=== PATIENT | male | born 1940 | race Caucasian/White ===

== ENCOUNTER → 2018-09-03 15:45 | Outpatient (CLI) | payer MEDICARE, BC, SELFPAY ==
[2018-09-03 17:09] LABS: PSA,Total- Diagnostic 0.33 ng/mL (0.0-4.0)
== END ==
PROVIDERS: Family Provider Family Medicine; PCP Family Medicine; Referring Provider Urology; Visit Provider Urology
DX: C61 Malignant neoplasm of prostate (principal)
CPT/HCPCS: 36415; 84153

== ENCOUNTER 2020-07-12 16:41 | Inpatient (IN) | payer MEDICARE, BC, SELFPAY ==
[2020-07-12 16:51] VITALS: BP 128/85; PULSE 71; RESP 16; TEMP 36.4; O2SAT 93; BMI 26.6
[2020-07-12 18:03] VITALS: BMI 26.6
[2020-07-12 19:26] VITALS: BP 126/82; PULSE 75; RESP 16; TEMP 36.6; O2SAT 94
--- NOTE | 2020-07-12 21:25 | PCM.HP.STD ---
Problem List (1) Debility Status: Acute (2) Osteoarthritis of right knee Status: Chronic (3) Peroneal DVT (deep venous thrombosis) Status: Acute (4) Hypertension Status: Chronic (5) Hyperlipidemia Status: Chronic (6) Anxiety Status: Chronic (7) Depression Status: Chronic Qualifiers: (8) CAD (coronary artery disease) Status: Chronic Qualifiers: History of Present Illness Date of Admission: 07/12/20 Chief Complaint: Here for 3 hours daily rehabilitation, strengthening, prior to discharge home with . The patient is a 80 year old Male with past medical history of coronary artery disease, hypertension, hyperlipidemia, depression, hospitalized for right total knee arthroplasty 07/06/[address] Adams at [facility]. Postoperative course complicated by Peroneal DVT 07/09/20 treated with Xarelto for 3 months. Postoperative anemia did not require transfusion. Admit to 07/12/20 for greater than 3 hours daily rehabilitation, prior to discharge home with . 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, 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 Hyperlipemia E78.5 HTN (hypertension) I10 Allergies No Known Allergies Allergy (Verified 06/15/17 17:24) Home Medications: Ambulatory Orders Medication Instructions Recorded Atenolol 12.5 mg PO DAILY 06/15/17 Crestor 40 mg PO DAILY 06/15/17 Lisinopril 20 mg PO DAILY 06/15/17 Plavix 75 mg PO DAILY 06/15/17 Ranexa 500 mg PO DAILY 06/15/17 Super B Maxi Complex Caplet 1 PO DAILY 06/15/17 Vitamin B-12 1 PO DAILY 06/15/17 Acetaminophen [Tylenol] 1,000 mg PO Q6H PRN PRN 07/12/20 Amlodipine [Norvasc] 5 mg PO DAILY 07/12/20 Escitalopram Oxalate [Lexapro] 10 mg PO DAILY 07/12/20 Lorazepam [Ativan] 0.5 mg PO DAILY 07/12/20 Ondansetron HCl [Zofran] 4 mg PO Q8H PRN PRN 07/12/20 Oxycodone [Oxyir] 5 mg PO Q4H PRN PRN 07/12/20 Rivaroxaban [Xarelto] 15 mg PO BID 07/12/20 Rivaroxaban [Xarelto] 20 mg PO DAILY 07/12/20 Surgical History: herniorrhaphy, - - Aortic stent. Psychiatric History: Anxiety, Depression Lives: Spouse/ Significant Other Smoking Status: Never smoker Tobacco Use: Non-smoker Alcohol: Rare Drugs: None - *Family History Maternal History Items: No pertinent history Paternal History Items: No pertinent history Review of Systems Constitutional: Denies: Chills, Fever, Weight Change HEENT: Denies: Head Aches, Sinus Congestion, Sinus Drainage Cardiovascular: Denies: Chest Pain, Palpitations Respiratory: Denies: Cough, Shortness of breath at rest, Sputum production Gastrointestinal: Denies: Abdominal Pain, Nausea, Vomiting Genitourinary: Denies: Dysuria Musculoskeletal: Denies: Joint Pain, Joint Tenderness Skin: Denies: Rash, Wounds Neurological: Denies: Numbness, Tingling, Focal weakness Psychiatric: Denies: Anxiety, Depression, Homicidal Ideations, Suicidal Ideations Hematologic/ Lymphatic: Denies: Easy Bruising, Easy Bleeding VTE Information - Inpt Only VTE Present on Admission: Yes VTE Mechan Device Prophylaxis: Knee High ZULLY Hose VTE Pharm Prophylaxis ordered?: No Reason prophylaxis not ordered:: Treatment Not Indicated Patient Problems: Active and Suspected Problems (Last Updated 07/12/20 @ 17:49 by Makenzie Hernandez) Debility (Acute) Peroneal DVT (deep venous thrombosis) (Acute) - Physical Exam Vitals/I&O's: Vital Signs Temp Pulse Resp BP Pulse Ox 97.8 F 75 16 126/82 H 94 07/12/20 19:26 07/12/20 19:26 07/12/20 19:26 07/12/20 19:26 07/12/20 19:26 Oxygen Delivery Method Room Air Weight: 77.111 kg Body Mass Index (BMI) 26.6 Intake and Output for Last 24 Hours 07/10/20 07/11/20 07/12/20 23:59 23:59 23:59 Intake Total 250 / 250 Output Total 150 / 150 Balance 100 / 100 General: Alert, Oriented x3, Cooperative HEENT: Atraumatic, PERRLA, EOMI, Normocephalic Neck: Supple, No JVD, Negative Carotid Bruits Lungs: Clear to auscultation, Normal air movement Cardiovascular: Regular rate, No murmurs Abdomen: Bowel Sounds Present, Soft, Non Tender Extremities: No edema, Capillary Refill Less than 3 Seconds Skin: No rashes, No breakdown, Incision - Right knee incision clean, dry, intact. Musculoskeletal: No Tenderness to Palpation of Joints or Extremities Neurological: Cranial nerves II-XII grossly intact Psych/Mental Status: Normal Affect, Appropriate Current Medications Acetaminophen (Tylenol) 1,000 mg PO Q6H PRN PRN PRN Reason: Pain or Fever Amlodipine Besylate (Norvasc) 5 mg PO DAILY REPLACED BY [facility] Atenolol (Tenormin (Beta Becki)) 12.5 mg PO DAILY REPLACED BY [facility] Atorvastatin Calcium (Lipitor) 80 mg PO QHS REPLACED BY [facility] Bisacodyl (Dulcolax) 10 mg RECTAL .PRN X 1 PRN PRN Reason: Constipation Clopidogrel Bisulfate (Plavix) 75 mg PO DAILY REPLACED BY [facility] Escitalopram Oxalate (Lexapro) 10 mg PO DAILY REPLACED BY [facility] Lisinopril (Zestril) 20 mg PO DAILY REPLACED BY [facility] Lorazepam (Ativan) 0.5 mg PO DAILY@0800 REPLACED BY [facility] Magnesium Hydroxide (Milk Of Magnesia) 30 ml PO .PRN X 1 PRN PRN Reason: Constipation Ondansetron HCl (Zofran Odt) 4 mg PO Q8H PRN PRN PRN Reason: NAUSEA/VOMITING Oxycodone HCl (Oxyir) 5 mg PO Q4H PRN PRN PRN Reason: Pain Score 1-10/10 Ranolazine (Ranexa) 500 mg PO DAILY REPLACED BY [facility] Rivaroxaban (Xarelto) 20 mg PO DAILY@1745 REPLACED BY [facility] Rivaroxaban (Xarelto) 15 mg PO BID@0745,1745 REPLACED BY [facility] Stop: 08/02/20 17:46 Senna/Docusate Sodium (Senokot-S, Roxi-Colace) 2 tablet PO BID REPLACED BY [facility] Assessment/Plan All Active Problems (Last Updated 07/12/20 @ 17:49 by Makenzie Hernandez) Debility (Acute) Peroneal DVT (deep venous thrombosis) (Acute) 80 year old male with below past medical history underwent right total knee arthroplasty 07/06/[address] Adams, postoperative course complicated by peroneal DVT, admitted to for greater than 3 hours daily rehabilitation, strengthening, prior to discharge home with . Debility - PT/OT. Pain - Tylenol 1000MG Q6H PRN pain (1-3), Oxycodone 5MG Q4H PRN pain (4-10). Bowel - Senna/colace 2 tablets BID, Dulcolax 10MG [place] daily PRN, MOM 30ML PO PRN. DVT prophylaxis - Not necessary, already on Xarelto. Hypertension - Atenolol 12.5MG daily, Lisinopril 20MG daily, Amlodipine 5MG daily. Hyperlipidemia - Atorvastatin 80MG QHS. Coronary Artery Disease - Atenolol 12.5MG daily, Lisinopril 20MG daily, Ranexa 500MG daily, Plavix 75MG daily. Depression - Lexapro 10MG daily. Anxiety - Ativan 0.5MG daily. Nausea - Zofran 4MG Q8H PRN. Peroneal DVT - Xarelto 15MG BID thru 08/02/2020, Xarelto 20Mg daily thru 10/09/2020.
[2020-07-12] MEDS: Atorvastatin Calcium 80 MG Tablet PO (22:07)
[2020-07-12] MEDS: Senna/Docusate Sodium 1 Tablet 2 TABLET PO (22:07)
[2020-07-13] MEDS: Rivaroxaban 15 MG Tablet PO ×2 (06:43→17:42)
[2020-07-13 07:09] LABS: ALB/GLOB Ratio 0.8 RATIO (0.9-2.4); AST(SGOT) 55 U/L (15-37); Absolute Lymphocyte Count 0.99 X10^3/uL (0.83-4.51); Alanine Aminotransfer ALT/SGPT 38 U/L (16-61); Alkaline Phosphatase 74 U/L (45-117); Anion Gap 6 (5-15); BUN 22 mg/dL (7-18); BUN/Creat Ratio 18.8 RATIO (10-20); Basophil# 0.05 X10^3/uL; Basophil% 0.8 % (0-1); Calcium,Total 8.7 mg/dL (8.5-10.1); Chloride 109 mmol/L (98-107); Creatinine, Serum 1.17 mg/dL (0.70-1.30); EST Glomerular Filtration Rate 64 mL/min (>60); Eosinophil# 0.15 X10^3/uL; Eosinophils% 2.4 % (0-5); Est Glom Filt Rate - Afr Amer 77 mL/min (>60); Estimated Creatinine Clearance 47.08 ml/min; Globulin 3.6 g/dL (2.2-4.2); Glucose 118 mg/dL (74-106); Hematocrit 34.3 % (40-54); Hemoglobin 11.3 g/dL (13.0-16.5); Lymphocyte # 0.99 X10^3/ul (4.0); Lymphocyte % 15.6 % (19-41); Magnesium 2.4 mg/dL (1.6-2.6); Mean Corp Hgb Conc 32.9 g/dL (32-36); Mean Corpuscular Hgb 31.7 pg (27.0-32.0); Mean Corpuscular Volume 96.3 fL (80-94); Mean Platelet Vol. 10.5 fl (6.2-12.0); Monocyte# 0.95 X10^3/uL; NRBC Flagged by Analyzer 0.3 % (0-5); Neutrophil # 4.02 X10^3/uL (2.7-7.7); Neutrophil % 63.2 % (47-70); Phosphorus 2.6 mg/dL (2.5-4.9); Platelet Count 171 K/mm3 (150-450); Potassium 3.6 mmol/L (3.5-5.1); Protein, Total 6.6 g/dL (6.4-8.2); RBC Distribution Width SD 48.8 fl (35.1-43.9); Red Blood Count 3.56 M/mm3 (4.6-6.2); Sodium Level 141 mmol/L (136-145); White Blood Count 6.4 K/mm3 (4.4-11.0)
[2020-07-13] MEDS: LORazepam 0.5 MG Tablet PO (07:51)
[2020-07-13] MEDS: Atenolol 25 MG Tablet 12.5 MG PO (07:52)
[2020-07-13] MEDS: Clopidogrel Bisulfate 75 MG Tablet PO (07:52)
[2020-07-13] MEDS: Ranolazine 500 MG Tablet PO (07:52)
[2020-07-13] MEDS: Escitalopram Oxalate 10 MG Tablet PO (07:52)
[2020-07-13] MEDS: Lisinopril 20 MG Tablet PO (07:52)
[2020-07-13] MEDS: amLODIPine 5 MG Tablet PO (07:52)
[2020-07-13] MEDS: oxyCODONE 5 MG Tablet PO ×2 (07:53→17:48)
[2020-07-13 08:05] VITALS: BP 144/80; PULSE 80; RESP 16; TEMP 36.8; O2SAT 99
--- NOTE | 2020-07-13 09:16 | NURSING ---
Call placed to Dr. Adams office and message left regarding wether or not pt is to have CPM/ROM machine or not per .
[2020-07-13] MEDS: Acetaminophen 500 MG Tablet 1000 MG PO (11:08)
[2020-07-13] MEDS: NYSTATIN 500,000 UNIT/5 ML UDC 500000 UNIT PO ×4 (11:09→20:48)
[2020-07-13 17:00] VITALS: O2SAT 97
[2020-07-13 19:15] VITALS: BP 124/86; PULSE 74; RESP 16; TEMP 36.6; O2SAT 96
[2020-07-13] MEDS: Atorvastatin Calcium 80 MG Tablet PO (20:49)
[2020-07-13] MEDS: Senna/Docusate Sodium 1 Tablet 2 TABLET PO (20:49)
--- NOTE | 2020-07-13 21:00 | PCM.RU.PYE ---
Admission Information Primary Diagnosis:: Right total knee arthroplasty, Peroneal DVT. Status Changes from Prescreening?: No changes Identified Actual Problem List:: DVT, Pain, ALteration in Cmfrt, Mobility Impaired Potential Problem List:: DVT, Bleeding, Infection, UTI, Aspiration, Falls, Skin Integrity, Depression Risk of Complications DVT: LMWH, ZULLY Hose, Sequential Compression Device Bleeding: Monitor Lab Values, Nursing to Teach Precautions for anti-coagulation therapy., Wound, if applicable, to be assessed every shift., Stroke patients assessed for lethargy or change in status. Infection: Clinical Staff to Monitor for S/S of infection:, S/S of infection include fever, redness, warmth, etc. Urinary Tract Infection: Monitor for frequency, burning, discomfort, or incontinence., Nursing will obtain urine sample for urinalysis and C&S when ordered. Aspiration: Clinical staff will monitor for coughing, drooling, congestion., Speech will evaluate swallowing and dsyphasia., Nursing will monitor patient swallowing during meals. Falls: Patient will be evaluated for Fall Precautions, Patient will be placed on Fall Precautions as indicated per protocol. Skin Breakdown: Nursing will assess skin daily using assessment tool., Nursing will place on Skin Breakdown Precautions as indicated. Pain: Clinical staff will assess patient's pain level per protocol., Medications will be given, if needed, and the pain level reassessed., Other methods: Massage, distraction, decrease stimulus, etc. used PRN. Plan of Care Patient requires physician specializing in physical medicine and rehab oversight to provide close medical supervision of rehab issues including: Pain Management, Sleep Problems, Bowel and Bladder, Medical and co-morbidity Management, DVT prophylaxis, Rehabilitation Leadership, Coordination of treatment team Patient needs Physical Therapy: For a minimum of 1 hour, At least 5 out of 7 days Patient needs Physical Therapy to improve:: Mobility, Mobility, Mobility, Strengthening, Transfers, Stretching, ROM, Endurance, Stairs, Gait, Balance Patient needs Occupational Therapy: For a minimum of 1 hour, At least 5 out of 7 days Patient needs Occupational Therapy to improve ADL's incl.: Eating, Grooming, Bathing, Dressing, Toileting, Toilet transfers, Community Reintegration, Higher functioning activities, Household tasks, Adaptive Equipment, Splinting, Other activities as determined Patient requires speech therapy: For a minimum of 1 hour, At least 5 out of 7 days Patient requires speech therapy for: Swallowing, Cognition, Language Skills, Compensatory Strategies Patient requires 24/ Rehabilitation Nursing for: Pain Issues, Identifying and preventing risk factors, Monitoring and reporting current medical conditions, Assisting with ambulation, transfer, and all ADL's, Teaching patients about disease process and medications, Family teaching, Providing safe environment, Bowel and Bladder Issues, Skin integrity, Medication Management Patient needs Director Public Service/ Case Management for: Discharge Planning, Arranging Home Equipment or Services, Family Interventions Patient needs Dietary and Nutrition Services for: Adequate Nutrition, Nutritional Supplements, Nutritional Education Goals Patient will remain: free from falls, or injury at time of discharge. Patient will perform bed mobility at: MOD I level of assist. Patient will complete transfers from bed to chair at: MOD I level of assist. Patient will ambulate: 100 feet, with MOD I assist, with LRD Patient will complete upper body dressing at: MOD I level of assist. Patient will complete lower body dressing at: MOD I level of assist. Patient will complete toileting at: MOD I level of assist. Patient will perform bathing at: - - Supervision. Patient will complete grooming at: MOD I level of assist. Patient will complete home management skills at: MOD I level of assist. Patient will achieve: at MOD I assist, - - 1 step. Patient will have pain level of: of 3 or less Patient's skin will: remain intact, free from infection. Patient will receive: adequate nutrition. Discharge Planning Pt Prognosis for Sig. Practical Improv. w/in Reasonable Time: Good Anticipated D/C Destination: Home with Home Health Was Preadmission Assessment Accurate?: Yes
[2020-07-13 21:09] VITALS: PULSE 74; RESP 16; O2SAT 96
--- NOTE | 2020-07-14 02:59 | NURSING ---
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
[2020-07-14] MEDS: oxyCODONE 5 MG Tablet PO ×2 (05:40→09:56)
[2020-07-14 06:30] VITALS: O2SAT 96
[2020-07-14] MEDS: LORazepam 0.5 MG Tablet PO (07:49)
[2020-07-14] MEDS: amLODIPine 5 MG Tablet PO (07:49)
[2020-07-14] MEDS: Atenolol 25 MG Tablet 12.5 MG PO (07:49)
[2020-07-14] MEDS: Ranolazine 500 MG Tablet PO (07:49)
[2020-07-14] MEDS: Lisinopril 20 MG Tablet PO (07:50)
[2020-07-14] MEDS: Rivaroxaban 15 MG Tablet PO ×2 (07:50→16:57)
[2020-07-14] MEDS: Clopidogrel Bisulfate 75 MG Tablet PO (07:50)
[2020-07-14] MEDS: Escitalopram Oxalate 10 MG Tablet PO (07:50)
[2020-07-14] MEDS: NYSTATIN 500,000 UNIT/5 ML UDC 500000 UNIT PO ×4 (07:56→20:00)
[2020-07-14 08:19] VITALS: BP 123/63; PULSE 71; RESP 16; TEMP 37; O2SAT 95
--- NOTE | 2020-07-14 08:23 | PCM.PROGNOTE ---
Patient Problems: Active and Suspected Problems (Last Updated 07/12/20 @ 17:49 by Makenzie Hernandez) Debility (Acute) Peroneal DVT (deep venous thrombosis) (Acute) Subjective: Patient seen today, lying in bed. He has no complaints. We discussed his DVT, let him know will resolve with treatment. - Physical Exam Vitals/I&O's: Vital Signs Temp Pulse Resp BP Pulse Ox 98.6 F 71 16 123/63 H 95 07/14/20 08:19 07/14/20 08:19 07/14/20 08:19 07/14/20 08:19 07/14/20 08:19 Oxygen Delivery Method Room Air Weight: 76.5 kg Body Mass Index (BMI) 26.6 Intake and Output for Last 24 Hours 07/12/20 07/13/20 07/14/20 23:59 23:59 23:59 Intake Total 370 / 370 260 / 260 360 / 360 Output Total 300 / 300 600 / 600 150 / 150 Balance 70 / 70 -340 / -340 210 / 210 General: Alert, Oriented x3, Cooperative HEENT: Atraumatic, PERRLA, EOMI, Normocephalic Neck: Supple, No JVD, Negative Carotid Bruits Lungs: Clear to auscultation, Normal air movement Cardiovascular: Regular rate, No murmurs Abdomen: Bowel Sounds Present, Soft, Non Tender Extremities: No edema, Capillary Refill Less than 3 Seconds Skin: No rashes, No breakdown Musculoskeletal: No Tenderness to Palpation of Joints or Extremities Neurological: Cranial nerves II-XII grossly intact Psych/Mental Status: Normal Affect, Appropriate Current Medications Acetaminophen (Tylenol) 1,000 mg PO Q6H PRN PRN PRN Reason: Pain Score 1-3/10 Last Admin: 07/13/20 11:08 Dose: 1,000 mg Documented by: Amlodipine Besylate (Norvasc) 5 mg PO DAILY [facility] Last Admin: 07/14/20 07:49 Dose: 5 mg Documented by: Atenolol (Tenormin (Beta Becki)) 12.5 mg PO DAILY [facility] Last Admin: 07/14/20 07:49 Dose: 12.5 mg Documented by: Atorvastatin Calcium (Lipitor) 80 mg PO QHS [facility] Last Admin: 07/13/20 20:49 Dose: 80 mg Documented by: Bisacodyl (Dulcolax) 10 mg RECTAL .PRN X 1 PRN PRN Reason: Constipation Clopidogrel Bisulfate (Plavix) 75 mg PO DAILY [facility] Last Admin: 07/14/20 07:50 Dose: 75 mg Documented by: Escitalopram Oxalate (Lexapro) 10 mg PO DAILY [facility] Last Admin: 07/14/20 07:50 Dose: 10 mg Documented by: Lisinopril (Zestril) 20 mg PO DAILY [facility] Last Admin: 07/14/20 07:50 Dose: 20 mg Documented by: Lorazepam (Ativan) 0.5 mg PO DAILY@0800 [facility] Last Admin: 07/14/20 07:49 Dose: 0.5 mg Documented by: Magnesium Hydroxide (Milk Of Magnesia) 30 ml PO .PRN X 1 PRN PRN Reason: Constipation Nystatin (Nystatin) 500,000 unit PO 4X/DAY [facility] Stop: 07/22/20 22:00 Last Admin: 07/14/20 07:56 Dose: 500,000 unit Documented by: Ondansetron HCl (Zofran Odt) 4 mg PO Q8H PRN PRN PRN Reason: NAUSEA/VOMITING Oxycodone HCl (Oxyir) 5 mg PO Q4H PRN PRN PRN Reason: Pain Score 4-10/10 Last Admin: 07/14/20 05:40 Dose: 5 mg Documented by: Ranolazine (Ranexa) 500 mg PO DAILY [facility] Last Admin: 07/14/20 07:49 Dose: 500 mg Documented by: Rivaroxaban (Xarelto) 20 mg PO DAILY@1745 [facility] Rivaroxaban (Xarelto) 15 mg PO BID@0745,1745 [facility] Stop: 08/02/20 17:46 Last Admin: 07/14/20 07:50 Dose: 15 mg Documented by: Senna/Docusate Sodium (Senokot-S, Roxi-Colace) 2 tablet PO BID [facility] Last Admin: 07/14/20 07:50 Dose: Not Given Documented by: Capacity - Capacity Assessment Tool Can the patient make a choice & communicate that choice?: Yes Can the patient understand benefits, risks and alternatives?: Yes Can the patient make a logical, rational choice?: Yes Is the choice the patient makes consistent w/ their values?: Yes Is there an impending, emergent risk to the patient?: No Does the patient have an Advance Directive?: No Is there a Surrogate Available?: Yes i.e. HCPOA: Yes i.e. close relative (spouse, child, parent, sibling)?: Yes Medical Necessity - Tobacco Use Smoking Status: Never smoker Tobacco Use: Non-smoker Assessment/Plan All Active Problems (Last Updated 07/12/20 @ 17:49 by Makenzie Hernandez) Debility (Acute) Peroneal DVT (deep venous thrombosis) (Acute) 80 year old male with below past medical history underwent right total knee arthroplasty 07/06/[address] Adams, postoperative course complicated by peroneal DVT, admitted to for greater than 3 hours daily rehabilitation, strengthening, prior to discharge home with . Debility - PT/OT. Pain - Tylenol 1000MG Q6H PRN pain (1-3), Oxycodone 5MG Q4H PRN pain (4-10). Bowel - Senna/colace 2 tablets BID, Dulcolax 10MG [place] daily PRN, MOM 30ML PO PRN. DVT prophylaxis - Not necessary, already on Xarelto. Hypertension - Atenolol 12.5MG daily, Lisinopril 20MG daily, Amlodipine 5MG daily. Hyperlipidemia - Atorvastatin 80MG QHS. Coronary Artery Disease - Atenolol 12.5MG daily, Lisinopril 20MG daily, Ranexa 500MG daily, Plavix 75MG daily. Depression - Lexapro 10MG daily. Anxiety - Ativan 0.5MG daily. Nausea - Zofran 4MG Q8H PRN. Peroneal DVT - Xarelto 15MG BID thru 08/02/2020, Xarelto 20Mg daily thru 10/09/2020.
--- NOTE | 2020-07-14 15:43 | CHAPLAIN ---
Type of Pastoral Visit _x__ Initial Visit ___ Follow-up Visit ___ On-call Visit ___ General Patient Visit ___ Spiritual Assessment ___ Family Conference ___ Bereavement ___ Rapid Response ___ Code Blue ___ Other (describe below) Pastoral Care Referral From _x__ Patient ___ Family ___ Nurse ___ Physician ___ Pallet Rectifier ___ Progress Clerk ___ Other (describe below) Sacrament/Intervention _x__ Active listening ___ Anointing ___ Scientology ___ Bereavement ___ Communion ___ Yenni exploration ___ _x__ Life review _x__ Prayer ___ Reconciliation ___ Sacrament of Sick _x__ Supportive presence ___ Wedding ___ Other (describe below) Pastoral Comments patient describes day as being a hard one; when asked how he is coping the pt responded well it has only been a week so I don't know, maybe just taking it as it comes; after some life review pt recognizes that he has many positive things in his life and his focus should be on those
[2020-07-14] MEDS: Senna/Docusate Sodium 1 Tablet 2 TABLET PO (20:00)
[2020-07-14] MEDS: Atorvastatin Calcium 80 MG Tablet PO (20:00)
[2020-07-14 20:05] VITALS: BP 134/75; PULSE 68; RESP 16; TEMP 37; O2SAT 94
[2020-07-15] MEDS: amLODIPine 5 MG Tablet PO (07:46)
[2020-07-15] MEDS: Rivaroxaban 15 MG Tablet PO ×2 (07:46→16:44)
[2020-07-15] MEDS: oxyCODONE 5 MG Tablet PO ×3 (07:46→16:49)
[2020-07-15] MEDS: Escitalopram Oxalate 10 MG Tablet PO (07:46)
[2020-07-15] MEDS: Ranolazine 500 MG Tablet PO (07:47)
[2020-07-15] MEDS: Clopidogrel Bisulfate 75 MG Tablet PO (07:47)
[2020-07-15] MEDS: Atenolol 25 MG Tablet 12.5 MG PO (07:47)
[2020-07-15] MEDS: Lisinopril 20 MG Tablet PO (07:48)
[2020-07-15] MEDS: LORazepam 0.5 MG Tablet PO (07:50)
[2020-07-15 07:55] VITALS: BP 139/83; PULSE 73; RESP 16; TEMP 36.6; O2SAT 94
--- NOTE | 2020-07-15 09:15 | CASEMGMT ---
Social Work IDT met with patient and for Team meeting. Discussed patient's progress in therapy. Pt is SBA to CGA or bed mobility, CGA to [facility] for transfers, ambulating 80 ft with FWW at [facility], but has small shuffled steps. Pt fatigues throughout the day. [facility] set up seated for UE dressing and grooming, [place] for LE dressing. Pt was independent prior. Pt gets paco removed 07/21. Discussed signs of Parkinson's - ordered Sinamet to start. Pt has flat affect. reports to all signs started about a few months to a year ago. Inquired about psych hx. stated he has seen a psychologist prior and had a psych hospitalization about 2 years ago. She recommended increasing his antidepressant - pt has increased dose ordered already. Pt is not one to express feelings. She reports to him being bubbly and outgoing. Will monitor for changes with order of medication. SW to continue to follow and assist. Explained Medicare coverage with approved days 15, 07/27. Nursing and therapy reported to pt needing increased time to process, trouble initiating tasks, and trouble with automatic tasks., Ordered entered for ST. Will ReTeam next week. Will continue to follow. Emma Bernal, [employer] SOFTWARE ARCHITECT
[2020-07-15] MEDS: Carbidopa/Levodopa 25/100 Tablet PO ×2 (11:18→16:44)
[2020-07-15] MEDS: NYSTATIN 500,000 UNIT/5 ML UDC 500000 UNIT PO ×3 (14:13→19:57)
[2020-07-15] MEDS: Acetaminophen 500 MG Tablet 1000 MG PO (18:51)
[2020-07-15 19:01] VITALS: BP 143/71; PULSE 69; RESP 16; TEMP 36.8; O2SAT 95
[2020-07-15] MEDS: Atorvastatin Calcium 80 MG Tablet PO (19:56)
[2020-07-15] MEDS: Senna/Docusate Sodium 1 Tablet 2 TABLET PO (19:56)
--- NOTE | 2020-07-15 20:55 | PN_ITS ---
Patient Problems: Active and Suspected Problems (Last Updated 07/12/20 @ 17:49 by Makenzie Hernandez) Debility (Acute) Peroneal DVT (deep venous thrombosis) (Acute) Subjective: Patient seen on Team Rounds. present. We discussed some of his symptoms maybe related to Parkinsonism. He agreed to therapeutic, diagnostic trial of carbidopa Levodopa. - Physical Exam Vitals/I&O's: Vital Signs Temp Pulse Resp BP Pulse Ox 98.3 F 69 16 143/71 H 95 07/15/20 19:01 07/15/20 19:01 07/15/20 19:01 07/15/20 19:07/15/20 19:01 Oxygen Delivery Method Room Air Weight: 76.5 kg Body Mass Index (BMI) 26.6 Intake and Output for Last 24 Hours 07/13/20 07/14/20 07/15/20 23:59 23:59 23:59 Intake Total 260 / 260 1440 / 1440 1100 / 1100 Output Total 600 / 600 675 / 675 300 / 300 Balance -340 / -340 765 / 765 800 / 800 General: Alert, Oriented x3, Cooperative HEENT: Atraumatic, PERRLA, EOMI, Normocephalic Neck: Supple, No JVD, Negative Carotid Bruits Lungs: Clear to auscultation, Normal air movement Cardiovascular: Regular rate, No murmurs Abdomen: Bowel Sounds Present, Soft, Non Tender Extremities: No edema, Capillary Refill Less than 3 Seconds Skin: No rashes, No breakdown Musculoskeletal: No Tenderness to Palpation of Joints or Extremities Neurological: Cranial nerves II-XII grossly intact, - - Masked Facies, shuffling gait. Psych/Mental Status: Normal Affect, Appropriate Current Medications Acetaminophen (Tylenol) 1,000 mg PO Q6H PRN PRN PRN Reason: Pain Score 1-3/10 Last Admin: 07/15/20 18:51 Dose: 1,000 mg Documented by: Amlodipine Besylate (Norvasc) 5 mg PO DAILY [facility] Last Admin: 07/15/20 07:46 Dose: 5 mg Documented by: Atenolol (Tenormin (Beta Becki)) 12.5 mg PO DAILY [facility] Last Admin: 07/15/20 07:47 Dose: 12.5 mg Documented by: Atorvastatin Calcium (Lipitor) 80 mg PO QHS [facility] Last Admin: 07/15/20 19:56 Dose: 80 mg Documented by: Bisacodyl (Dulcolax) 10 mg RECTAL .PRN X 1 PRN PRN Reason: Constipation Carbidopa/Levodopa (Sinemet) 1 tablet PO TIDAC [facility] Last Admin: 07/15/20 16:44 Dose: 1 tablet Documented by: Clopidogrel Bisulfate (Plavix) 75 mg PO DAILY [facility] Last Admin: 07/15/20 07:47 Dose: 75 mg Documented by: Escitalopram Oxalate (Lexapro) 10 mg PO DAILY [facility] Last Admin: 07/15/20 07:46 Dose: 10 mg Documented by: Lisinopril (Zestril) 20 mg PO DAILY [facility] Last Admin: 07/15/20 07:48 Dose: 20 mg Documented by: Lorazepam (Ativan) 0.5 mg PO DAILY@0800 [facility] Last Admin: 07/15/20 07:50 Dose: 0.5 mg Documented by: Magnesium Hydroxide (Milk Of Magnesia) 30 ml PO .PRN X 1 PRN PRN Reason: Constipation Nystatin (Nystatin) 500,000 unit PO 4X/DAY [facility] Stop: 07/22/20 22:00 Last Admin: 07/15/20 19:57 Dose: 500,000 unit Documented by: Ondansetron HCl (Zofran Odt) 4 mg PO Q8H PRN PRN PRN Reason: NAUSEA/VOMITING Oxycodone HCl (Oxyir) 5 mg PO Q4H PRN PRN PRN Reason: Pain Score 4-10/10 Last Admin: 07/15/20 16:49 Dose: 5 mg Documented by: Oxycodone HCl (Oxyir) 5 mg PO DAILY@0600 [facility] Ranolazine (Ranexa) 500 mg PO DAILY [facility] Last Admin: 07/15/20 07:47 Dose: 500 mg Documented by: Rivaroxaban (Xarelto) 20 mg PO DAILY@1745 [facility] Rivaroxaban (Xarelto) 15 mg PO BID@0745,1745 [facility] Stop: 08/02/20 17:46 Last Admin: 07/15/20 16:44 Dose: 15 mg Documented by: Senna/Docusate Sodium (Senokot-S, Roxi-Colace) 2 tablet PO BID [facility] Last Admin: 07/15/20 19:56 Dose: 2 tablet Documented by: Capacity - Capacity Assessment Tool Can the patient make a choice & communicate that choice?: Yes Can the patient understand benefits, risks and alternatives?: Yes Can the patient make a logical, rational choice?: Yes Is the choice the patient makes consistent w/ their values?: Yes Is there an impending, emergent risk to the patient?: No Does the patient have an Advance Directive?: No Is there a Surrogate Available?: Yes i.e. HCPOA: Yes i.e. close relative (spouse, child, parent, sibling)?: Yes Medical Necessity - Tobacco Use Smoking Status: Never smoker Tobacco Use: Non-smoker Assessment/Plan All Active Problems (Last Updated 07/12/20 @ 17:49 by Makenzie Hernandez) Debility (Acute) Peroneal DVT (deep venous thrombosis) (Acute) 80 year old male with below past medical history underwent right total knee arth roplasty 07/06/[address] Adams, postoperative course complicated by peroneal DVT, admitted to for greater than 3 hours daily rehabilitation, strengthening, prior to discharge home with . * Debility - PT/OT. * Pain - Tylenol 1000MG Q6H PRN pain (1-3), Oxycodone 5MG Q4H PRN pain (4-10). * Bowel - Senna/colace 2 tablets BID, Dulcolax 10MG [place] daily PRN, MOM 30ML PO PRN. * DVT prophylaxis - Not necessary, already on Xarelto. * Hypertension - Atenolol 12.5MG daily, Lisinopril 20MG daily, Amlodipine 5MG daily. * Hyperlipidemia - Atorvastatin 80MG QHS. * Coronary Artery Disease - Atenolol 12.5MG daily, Lisinopril 20MG daily, Ranexa 500MG daily, Plavix 75MG daily. * Depression - Lexapro 10MG daily. * Anxiety - Ativan 0.5MG daily. * Nausea - Zofran 4MG Q8H PRN. * Peroneal DVT - Xarelto 15MG BID thru 08/02/2020, Xarelto 20Mg daily thru 10/09/2020. * Parkinsonism - Rx Sinemet 25/100MG TID trial, monitor closely for improvement in movement.
[2020-07-16] MEDS: Carbidopa/Levodopa 25/100 Tablet PO ×3 (06:03→16:11)
[2020-07-16] MEDS: oxyCODONE 5 MG Tablet PO ×3 (06:03→20:35)
[2020-07-16 07:34] VITALS: BP 126/79; PULSE 66; RESP 18; TEMP 36.6; O2SAT 93
[2020-07-16] MEDS: Rivaroxaban 15 MG Tablet PO ×2 (08:20→17:24)
[2020-07-16] MEDS: Escitalopram Oxalate 10 MG Tablet PO (08:21)
[2020-07-16] MEDS: amLODIPine 5 MG Tablet PO (08:21)
[2020-07-16] MEDS: NYSTATIN 500,000 UNIT/5 ML UDC 500000 UNIT PO ×4 (08:21→20:32)
[2020-07-16] MEDS: Clopidogrel Bisulfate 75 MG Tablet PO (08:22)
[2020-07-16] MEDS: Ranolazine 500 MG Tablet PO (08:22)
[2020-07-16] MEDS: Senna/Docusate Sodium 1 Tablet 2 TABLET PO ×2 (08:22→20:33)
[2020-07-16] MEDS: Atenolol 25 MG Tablet 12.5 MG PO (08:22)
[2020-07-16] MEDS: Lisinopril 20 MG Tablet PO (08:23)
[2020-07-16] MEDS: LORazepam 0.5 MG Tablet PO (08:24)
[2020-07-16] MEDS: Atorvastatin Calcium 80 MG Tablet PO (20:32)
--- NOTE | 2020-07-16 20:40 | NURSING ---
pt. refused all HS care. Pt. states he wants to be left alone
[2020-07-16 21:25] VITALS: BP 123/74; PULSE 67; RESP 16; TEMP 36.7; O2SAT 95
[2020-07-17] MEDS: oxyCODONE 5 MG Tablet PO ×4 (05:39→21:56)
[2020-07-17] MEDS: Carbidopa/Levodopa 25/100 Tablet PO ×3 (05:39→16:06)
[2020-07-17] MEDS: Clopidogrel Bisulfate 75 MG Tablet PO (07:48)
[2020-07-17] MEDS: Rivaroxaban 15 MG Tablet PO ×2 (07:48→17:54)
[2020-07-17] MEDS: Ranolazine 500 MG Tablet PO (07:48)
[2020-07-17] MEDS: LORazepam 0.5 MG Tablet PO (07:48)
[2020-07-17] MEDS: amLODIPine 5 MG Tablet PO (07:48)
[2020-07-17] MEDS: Escitalopram Oxalate 10 MG Tablet PO (07:49)
[2020-07-17] MEDS: Atenolol 25 MG Tablet 12.5 MG PO (07:50)
[2020-07-17] MEDS: Lisinopril 20 MG Tablet PO (07:50)
[2020-07-17 08:08] VITALS: BP 133/74; PULSE 75; RESP 18; TEMP 36.9; O2SAT 94
[2020-07-17] MEDS: NYSTATIN 500,000 UNIT/5 ML UDC 500000 UNIT PO ×4 (10:19→21:57)
[2020-07-17 19:12] VITALS: BP 124/67; PULSE 60; RESP 18; TEMP 36.9; O2SAT 96
[2020-07-17] MEDS: Senna/Docusate Sodium 1 Tablet 2 TABLET PO (21:57)
[2020-07-17] MEDS: Atorvastatin Calcium 80 MG Tablet PO (21:57)
[2020-07-17 22:00] VITALS: PULSE 80; RESP 16
[2020-07-18] MEDS: Carbidopa/Levodopa 25/100 Tablet PO ×3 (06:13→17:27)
[2020-07-18] MEDS: oxyCODONE 5 MG Tablet PO ×5 (06:13→21:48)
[2020-07-18 07:32] VITALS: BP 128/75; PULSE 69; RESP 16; TEMP 36.5; O2SAT 95
[2020-07-18] MEDS: amLODIPine 5 MG Tablet PO (07:38)
[2020-07-18] MEDS: Rivaroxaban 15 MG Tablet PO ×2 (07:38→17:27)
[2020-07-18] MEDS: LORazepam 0.5 MG Tablet PO (07:38)
[2020-07-18] MEDS: Ranolazine 500 MG Tablet PO (07:38)
[2020-07-18] MEDS: Escitalopram Oxalate 10 MG Tablet PO (07:38)
[2020-07-18] MEDS: Atenolol 25 MG Tablet 12.5 MG PO (07:39)
[2020-07-18] MEDS: Clopidogrel Bisulfate 75 MG Tablet PO (07:39)
[2020-07-18] MEDS: Lisinopril 20 MG Tablet PO (07:39)
[2020-07-18] MEDS: NYSTATIN 500,000 UNIT/5 ML UDC 500000 UNIT PO ×4 (10:11→22:11)
[2020-07-18 20:19] VITALS: BP 132/74; PULSE 62; RESP 16; TEMP 36.6; O2SAT 96
[2020-07-18] MEDS: Atorvastatin Calcium 80 MG Tablet PO (21:49)
[2020-07-18] MEDS: Senna/Docusate Sodium 1 Tablet 2 TABLET PO (21:49)
[2020-07-18 22:00] VITALS: PULSE 68; RESP 16
[2020-07-19] MEDS: oxyCODONE 5 MG Tablet PO ×4 (06:25→21:17)
[2020-07-19] MEDS: Carbidopa/Levodopa 25/100 Tablet PO ×3 (06:26→16:52)
[2020-07-19] MEDS: Atenolol 25 MG Tablet 12.5 MG PO (07:38)
[2020-07-19] MEDS: Escitalopram Oxalate 10 MG Tablet PO (07:40)
[2020-07-19] MEDS: Rivaroxaban 15 MG Tablet PO ×2 (07:40→16:52)
[2020-07-19] MEDS: amLODIPine 5 MG Tablet PO (07:40)
[2020-07-19] MEDS: Lisinopril 20 MG Tablet PO (07:40)
[2020-07-19] MEDS: Ranolazine 500 MG Tablet PO (07:42)
[2020-07-19] MEDS: Clopidogrel Bisulfate 75 MG Tablet PO (07:42)
[2020-07-19] MEDS: LORazepam 0.5 MG Tablet PO (07:45)
[2020-07-19] MEDS: Acetaminophen 500 MG Tablet 1000 MG PO (07:53)
[2020-07-19 08:45] VITALS: BP 139/78; PULSE 66; RESP 16; TEMP 36.6; O2SAT 97
[2020-07-19] MEDS: NYSTATIN 500,000 UNIT/5 ML UDC 500000 UNIT PO ×4 (11:02→20:36)
--- NOTE | 2020-07-19 18:16 | NURSING ---
Pt ambulated hallways via up-walker 20 feet with extensive x1 assist, pt tolerated well.
[2020-07-19 19:49] VITALS: BP 117/69; PULSE 61; RESP 16; TEMP 36.5; O2SAT 96
[2020-07-19 20:22] VITALS: PULSE 66; RESP 16
[2020-07-19] MEDS: Senna/Docusate Sodium 1 Tablet 2 TABLET PO (20:37)
[2020-07-19] MEDS: Atorvastatin Calcium 80 MG Tablet PO (20:37)
[2020-07-20] MEDS: Carbidopa/Levodopa 25/100 Tablet PO ×3 (06:25→15:50)
[2020-07-20] MEDS: oxyCODONE 5 MG Tablet PO ×3 (06:25→15:50)
[2020-07-20 07:16] VITALS: BP 134/78; PULSE 65; RESP 16; TEMP 36.8; O2SAT 98
[2020-07-20] MEDS: NYSTATIN 500,000 UNIT/5 ML UDC 500000 UNIT PO ×4 (07:38→20:59)
[2020-07-20] MEDS: LORazepam 0.5 MG Tablet PO (07:38)
[2020-07-20] MEDS: Acetaminophen 500 MG Tablet 1000 MG PO (07:38)
[2020-07-20] MEDS: Ranolazine 500 MG Tablet PO (07:39)
[2020-07-20] MEDS: Atenolol 25 MG Tablet 12.5 MG PO (07:39)
[2020-07-20] MEDS: Escitalopram Oxalate 10 MG Tablet PO (07:39)
[2020-07-20] MEDS: Lisinopril 20 MG Tablet PO (07:41)
[2020-07-20] MEDS: Clopidogrel Bisulfate 75 MG Tablet PO (07:41)
[2020-07-20] MEDS: Rivaroxaban 15 MG Tablet PO ×2 (07:42→16:29)
[2020-07-20] MEDS: amLODIPine 5 MG Tablet PO (07:42)
--- NOTE | 2020-07-20 18:18 | NURSING ---
Pt ambulated hallways x20 feet via up-walker, mod x1 assist with ambulating and to get OOB.
[2020-07-20 19:00] VITALS: BP 128/67; PULSE 64; RESP 16; TEMP 36.7; O2SAT 95
[2020-07-20] MEDS: Atorvastatin Calcium 80 MG Tablet PO (20:59)
[2020-07-20] MEDS: Senna/Docusate Sodium 1 Tablet 2 TABLET PO (20:59)
[2020-07-21] MEDS: Carbidopa/Levodopa 25/100 Tablet PO ×3 (06:22→16:29)
[2020-07-21] MEDS: Rivaroxaban 15 MG Tablet PO ×2 (06:22→17:30)
[2020-07-21] MEDS: oxyCODONE 5 MG Tablet PO ×3 (06:22→17:29)
[2020-07-21 08:18] VITALS: BP 124/72; PULSE 75; RESP 18; TEMP 36.6; O2SAT 96
[2020-07-21] MEDS: Ranolazine 500 MG Tablet PO (08:22)
[2020-07-21] MEDS: NYSTATIN 500,000 UNIT/5 ML UDC 500000 UNIT PO ×4 (08:22→20:07)
[2020-07-21] MEDS: Clopidogrel Bisulfate 75 MG Tablet PO (08:22)
[2020-07-21] MEDS: Lisinopril 20 MG Tablet PO (08:22)
[2020-07-21] MEDS: LORazepam 0.5 MG Tablet PO (08:22)
[2020-07-21] MEDS: amLODIPine 5 MG Tablet PO (08:22)
[2020-07-21] MEDS: Escitalopram Oxalate 10 MG Tablet PO (08:22)
[2020-07-21] MEDS: Atenolol 25 MG Tablet 12.5 MG PO (08:22)
[2020-07-21] MEDS: Acetaminophen 500 MG Tablet 1000 MG PO (12:51)
[2020-07-21 19:30] VITALS: PULSE 65; RESP 16; O2SAT 96
[2020-07-21] MEDS: Atorvastatin Calcium 80 MG Tablet PO (20:07)
[2020-07-21 20:32] VITALS: BP 113/74; PULSE 65; RESP 16; TEMP 36.7; O2SAT 96
[2020-07-22] MEDS: Carbidopa/Levodopa 25/100 Tablet PO (06:06)
[2020-07-22] MEDS: oxyCODONE 5 MG Tablet PO ×2 (06:06→17:42)
[2020-07-22] MEDS: LORazepam 0.5 MG Tablet PO (07:20)
[2020-07-22] MEDS: Ranolazine 500 MG Tablet PO (07:20)
[2020-07-22] MEDS: Atenolol 25 MG Tablet 12.5 MG PO (07:20)
[2020-07-22] MEDS: amLODIPine 5 MG Tablet PO (07:20)
[2020-07-22] MEDS: Escitalopram Oxalate 10 MG Tablet PO (07:20)
[2020-07-22] MEDS: Clopidogrel Bisulfate 75 MG Tablet PO (07:20)
[2020-07-22] MEDS: Lisinopril 20 MG Tablet PO (07:21)
[2020-07-22] MEDS: Rivaroxaban 15 MG Tablet PO ×2 (07:24→17:43)
[2020-07-22] MEDS: NYSTATIN 500,000 UNIT/5 ML UDC 500000 UNIT PO ×4 (07:25→20:44)
[2020-07-22] MEDS: Acetaminophen 500 MG Tablet 1000 MG PO ×3 (07:40→20:45)
[2020-07-22 07:51] VITALS: BP 134/84; PULSE 66; RESP 16; TEMP 36.7; O2SAT 96
--- NOTE | 2020-07-22 10:39 | CASEMGMT ---
Addendum entered by Emma Bernal 07/22/20 11:52: Patient was active with [facility]. Cancelled referral to [facility]. Referral sent to [facility]. Original Note: Social Work IDT met with patient and daughter for Team meeting. Discussed patient's progress in therapy. Pt is ambulating 80 ft with UP FWW CGA, CGA for transfers, mod for bathing, min - mod for LE dressing, set up - min for grooming, set uo for UE dressing. ST working on word finding, recall, slow to process and issues with ST memory. Pt is very painful. Physician spoke with pt and and is adjusting some medications to assist with depression and pain. Explained Medicare approved 15 days with DC 07/27. IDt agrees pt DC to SNF at this time would not be beneficial. and pt agreeable to home with [facility]. Plan: DC home with 07/27 with [facility] PT/OT/ST/SN/SW. Emma Bernal, AISHA CAMP COOK
--- NOTE | 2020-07-22 11:27 | PCM.PN.BLA ---
Progress Note Luis was seen on team rounds today and his Fely was present. I reviewed Dr. Zambrano's H&P and also the records sent to us from [facility]. Afebrile VSS Maintaining appropriate oxygen saturation on RA Oral intake is poor. Discussed with nursing - no problems that need addressed other than he does not want to participate in therapy and getting up out of bed into the chair. Reviewed the PT/OT/ST notes Medication list reviewed. Luis has been depressed for a long time. His relates that about 3 years ago he was hospitalized for depression. He was suicidal at the time. He has been on Escitalopram 10 mg ever since then. He remains depressed. His memory is declining. He has also been taking Ativan 0.5 mg daily. He is not motivated to participate in therapy and he is forgetful and I suspect this maybe due to undertreated depression. I think the depression is also tied to chronic pain S. Has been seeing Dr. Navarrete and has had injections and an ablation with no improvement in R hip pain. He had surgery on the R knee to help with chronic R hip pain. The pain in the knee is minimal at this time but the pain in the R hip persists and is no better. The only time he can get comfortable is when he is lying in bed. Sitting up makes the pain worse. He describes the pain as sharp and stabbing. Denies paresthesias. He had the knee surgery at [facility] and his thinks he may have had CT or MRI of the back there. Post operatively he developed a clot in the peroneal vein and is on Xarelto. A CT of the left distal leg in 2017 at [facility] showed diffuse bone loss. PMH is significant for hypertension, coronary artery disease, hyperlipidemia, chronic depression and a hospitalization in 2017 for severe depression with suicidal ideation. Affect is flat. He is lying in bed. He answers my questions briefly. He has no tachypnea and no conversational dyspnea lying nearly flat in bed. Mucous membranes are dry The neck is supple and the trachea is midline. Lungs-diminished but clear to auscultation. I think they are diminished secondary to poor effort. Heart-regular rate and rhythm, no gallop, no rub, no murmurs Abdomen-soft, nontender, bowel sounds present, no bruits There is edema of the right knee and ecchymosis. The incision is intact. There is no significant erythema but there is warmth to touch secondary to inflammation. Negative Homans There is mild ankle edema on the right with no edema on the left No focal neurologic deficits Impressions 1. Physical debility secondary to recent right TKA 2. DVT right peroneal vein-on Xarelto 3. Mild macrocytic anemia likely secondary to blood loss from surgery 4. Chronic pain syndrome with chronic right lateral hip/right lateral buttock pain unrelieved by epidurals and a nerve ablation. This pain gets worse with sitting and I suspect it is secondary to radicular pain 5. Osteopenia versus osteoporosis. Diffuse bone loss on a CT scan of the left lower extremity in 2017 6. Chronic depression -clinically depressed at present on Lexapro 10 mg daily 7. Chronic benzodiazepine use each morning 8. Hyperlipidemia 9. Cognitive dysfunction -etiology? Likely undertreated depression contributes to this. Decrease the lorazepam to 0.25 mg p.o. daily and attempt to taper off by the time he is discharged. This likely contributes to his daily time somnolence and poor participation/performance in therapy Start gabapentin 100 mg p.o. twice daily for suspected radicular pain right hip area/right lateral buttocks Compounded neuropathic cream to the right hip area Discontinue Lexapro and start Effexor in 5-7 days for it's effects to not only treat depression but, to help with chronic pain which I suspect is contributing to depression and also to cognitive decline. Recheck lab Needs a bone mineral density test as an outpatient to quantify the degree of bone loss. If he has osteoporosis he will need to have a W/U for secondary causes of bone loss I do not think he will do well if he has to go to a SNF....I think this will significantly increase depression. We are going to do everything we can to increase his participation in therapy so that his will be able to assist him at home and he can get [facility]. Will discuss with his whether he is getting psychotherapy or not. STROKE Vital Signs/Narrative: Vital Signs Temp Pulse Resp BP Pulse Ox 07/22/20 07:51 98.0 F 66 16 134/84 H 96 Inpatient E&M: 26967 Init Hosp L3
[2020-07-22] MEDS: Gabapentin 100 MG Capsule PO ×2 (12:35→17:42)
[2020-07-22 19:37] VITALS: BP 119/62; PULSE 65; RESP 16; TEMP 36.6; O2SAT 95
[2020-07-22] MEDS: Senna/Docusate Sodium 1 Tablet 2 TABLET PO (20:44)
[2020-07-22] MEDS: Atorvastatin Calcium 80 MG Tablet PO (20:44)
[2020-07-22 20:45] VITALS: PULSE 65; RESP 16; O2SAT 95
[2020-07-22] MEDS: Neuropathy Pain Cream Compound 60 CLICK TUBE TOPICAL (20:46)
--- NOTE | 2020-07-23 03:59 | NURSING ---
Reviewed and agree with MICROFILM TECHNICIAN documentation and charting.
[2020-07-23] MEDS: Acetaminophen 500 MG Tablet 1000 MG PO ×3 (05:20→20:52)
[2020-07-23] MEDS: oxyCODONE 5 MG Tablet PO ×4 (05:21→20:52)
[2020-07-23 05:46] LABS: Hematocrit 36.5 % (40-54); Hemoglobin 11.3 g/dL (13.0-16.5); Mean Corpuscular Hgb 30.6 pg (27.0-32.0); Mean Corpuscular Volume 98.9 fL (80-94); Mean Platelet Vol. 9.3 fl (6.2-12.0); Platelet Count 401 K/mm3 (150-450); RBC Distribution Width CV 14.5 % (11.6-14.6); RBC Distribution Width SD 52.1 fl (35.1-43.9); Red Blood Count 3.69 M/mm3 (4.6-6.2); White Blood Count 6.3 K/mm3 (4.4-11.0)
[2020-07-23 06:06] LABS: Anion Gap 6 (5-15); BUN 21 mg/dL (7-18); BUN/Creat Ratio 17.9 RATIO (10-20); Calcium,Total 8.7 mg/dL (8.5-10.1); Chloride 105 mmol/L (98-107); Creatinine, Serum 1.17 mg/dL (0.70-1.30); EST Glomerular Filtration Rate 64 mL/min (>60); Est Glom Filt Rate - Afr Amer 77 mL/min (>60); Estimated Creatinine Clearance 47.08 ml/min; Glucose 109 mg/dL (74-106); Potassium 3.8 mmol/L (3.5-5.1); Sodium Level 138 mmol/L (136-145)
[2020-07-23] MEDS: amLODIPine 5 MG Tablet PO (07:38)
[2020-07-23] MEDS: LORazepam 0.5 MG Tablet 0.25 MG PO (07:38)
[2020-07-23] MEDS: Atenolol 25 MG Tablet 12.5 MG PO (07:38)
[2020-07-23] MEDS: Ranolazine 500 MG Tablet PO (07:38)
[2020-07-23] MEDS: Clopidogrel Bisulfate 75 MG Tablet PO (07:38)
[2020-07-23] MEDS: Gabapentin 100 MG Capsule PO ×3 (07:38→16:49)
[2020-07-23] MEDS: Lisinopril 20 MG Tablet PO (07:40)
[2020-07-23] MEDS: Rivaroxaban 15 MG Tablet PO ×2 (07:40→16:49)
[2020-07-23] MEDS: Neuropathy Pain Cream Compound 60 CLICK TUBE TOPICAL ×2 (09:05→20:51)
[2020-07-23 09:07] VITALS: BP 119/70; PULSE 61; RESP 18; TEMP 36.7; O2SAT 95
--- NOTE | 2020-07-23 09:14 | CASEMGMT ---
Social Work Spoke with and reviewed all DC plans - HHC and no DME needs. appreciative. Emma Bernal, [employer] WILDLIFE ECOLOGIST
--- NOTE | 2020-07-23 11:40 | PN_ITS ---
Progress Note Afebrile VSS Maintaining appropriate oxygen saturation on RA Oral intake is not being adequately recorded. His weight has decreased from 167 pounds and 9 ounces on to 164 pounds and 4 ounces today. Discussed with nursing - no problems that need addressed Reviewed the PT/OT/ST notes -he is doing much better today with PT and OT. The pain in the right hip is less today with institution of gabapentin and neuropathic cream to the right hip. Medication list reviewed. All lab from today was personally reviewed. CBC shows normal platelets and white blood cell count. Hemoglobin is stable at 11.3 with an MCV of 98.9. BMP is significant for an elevated BUN at 21 with a creatinine of 1.17 which is stable. Slept well last night. The pain in the right hip is better. He is c/o pain in the R knee today and is requesting we apply the cream to the knee. He was observed ambulating in the heredia and was doing much better. He was sm iling and did not appear to be in pain Lying flat in bed with no SOB MM are - dry. He was told to increase his fluid intake today abd - soft, NT The R knee is swollen and ecchymotic. there is no erythema. There is increased warmth to touch due to inflammation. no calf tenderness Impressions 1. Debility secondary to recent right TKA 2. Chronic right hip and right lateral buttock pain-increased with sitting. Suspect secondary to neuropathic pain. Improved with initiation of gabapentin and application of neuropathic cream to the right hip and buttock. 3. Longstanding depression - had a nervous breakdown in 2017. Has been on the same dose of EscitaloprAM. Still depressed....possibly due to chronic pain unrelieved by epidurals. EKG yesterday did not show QT prolongation. S-Citalo pram has been discontinued. Will start Effexor in a few days to treat depression and chronic pain. 4. ? PD? was started on Sinemet at admission. has concern about all the medication he is taking and she wanted to see a neurologist prior to starting Sinemet. I agreed with this and the Sinemet was stopped on 07/22/20. 5. Mild, stable macrocytic anemia - due to blood loss? Lorazepam was tapered yesterday....if he continues to do well would like to DC this medication prior to DC Continue Therapy Start Effexor XR 37.5 mg p.o. every morning on 07/26/2020 STROKE Vital Signs/Narrative: Vital Signs Temp Pulse Resp BP Pulse Ox 07/23/20 09:07 98.1 F 61 18 119/70 95 Inpatient E&M: 87524 Subs Hosp L2
--- NOTE | 2020-07-23 20:50 | NURSING ---
pt upset with staff this hs regarding pain medication. pt asked HAND COLLATOR for pain medication and HAND COLLATOR let this nurse know. at this time when this nurse took pts pain medication into him, pt snapped at staff stating that pain medication was due at 2029. This nurse explained to patient that the pain pill was not due until 2048 and pt snapped at staff again and states that someone told him it was due at 2029. This nurse offered to show pt the time of administration and pt angerly states no. this nurse and HAND COLLATOR offer to move pt up in bed since his feet were touching the footboard. pt screams out and denies for movement. this nurse explains to patient that staff would like to move him up in bed so that he doesn't choke on hs medications. pt yells at staff that he doesn't want to be moved. this nurse then continues with pt assessment and med administration. pt requests that pain medication be given again in 4 hours when it is due. pt requests to be woken up if sleeping. call light within reach.
[2020-07-23] MEDS: Atorvastatin Calcium 80 MG Tablet PO (20:51)
[2020-07-23 21:18] VITALS: BP 138/75; PULSE 62; RESP 16; TEMP 36.8; O2SAT 98
[2020-07-24] MEDS: oxyCODONE 5 MG Tablet PO ×3 (00:54→20:31)
[2020-07-24] MEDS: Acetaminophen 500 MG Tablet 1000 MG PO ×3 (05:47→20:30)
[2020-07-24] MEDS: Rivaroxaban 15 MG Tablet PO ×2 (08:13→16:46)
[2020-07-24] MEDS: Neuropathy Pain Cream Compound 60 CLICK TUBE TOPICAL ×2 (08:14→20:31)
[2020-07-24] MEDS: Gabapentin 100 MG Capsule PO ×3 (08:14→16:46)
[2020-07-24] MEDS: amLODIPine 5 MG Tablet PO (08:15)
[2020-07-24] MEDS: Ranolazine 500 MG Tablet PO (08:15)
[2020-07-24] MEDS: Clopidogrel Bisulfate 75 MG Tablet PO (08:15)
[2020-07-24] MEDS: Atenolol 25 MG Tablet 12.5 MG PO (08:16)
[2020-07-24] MEDS: Lisinopril 20 MG Tablet PO (08:16)
[2020-07-24] MEDS: LORazepam 0.5 MG Tablet 0.25 MG PO (08:22)
[2020-07-24 08:44] VITALS: BP 131/74; PULSE 63; RESP 16; TEMP 36.5; O2SAT 97
[2020-07-24] MEDS: Atorvastatin Calcium 80 MG Tablet PO (20:31)
[2020-07-24 20:40] VITALS: BP 120/85; PULSE 61; RESP 16; TEMP 36.6; O2SAT 69; O2SAT 96
[2020-07-25] MEDS: Acetaminophen 500 MG Tablet 1000 MG PO ×3 (05:55→22:31)
[2020-07-25] MEDS: oxyCODONE 5 MG Tablet PO ×3 (05:55→16:35)
[2020-07-25] MEDS: Gabapentin 100 MG Capsule PO ×3 (07:45→16:35)
[2020-07-25] MEDS: Neuropathy Pain Cream Compound 60 CLICK TUBE TOPICAL ×2 (07:45→22:30)
[2020-07-25] MEDS: Rivaroxaban 15 MG Tablet PO ×2 (07:45→16:35)
[2020-07-25] MEDS: Clopidogrel Bisulfate 75 MG Tablet PO (07:46)
[2020-07-25] MEDS: amLODIPine 5 MG Tablet PO (07:46)
[2020-07-25] MEDS: Ranolazine 500 MG Tablet PO (07:47)
[2020-07-25] MEDS: Atenolol 25 MG Tablet 12.5 MG PO (07:47)
[2020-07-25] MEDS: Lisinopril 20 MG Tablet PO (07:47)
[2020-07-25] MEDS: LORazepam 0.5 MG Tablet 0.25 MG PO (07:49)
[2020-07-25 08:36] VITALS: BP 129/72; PULSE 66; RESP 18; TEMP 36.6; O2SAT 96
[2020-07-25 20:51] VITALS: BP 105/55; PULSE 69; RESP 16; TEMP 36.7; O2SAT 97
[2020-07-25 21:40] VITALS: PULSE 69; RESP 16; O2SAT 97
[2020-07-25] MEDS: Senna/Docusate Sodium 1 Tablet 2 TABLET PO (22:31)
[2020-07-25] MEDS: Atorvastatin Calcium 80 MG Tablet PO (22:32)
[2020-07-26] MEDS: oxyCODONE 5 MG Tablet PO ×3 (05:52→17:27)
[2020-07-26] MEDS: Acetaminophen 500 MG Tablet 1000 MG PO ×3 (05:52→20:14)
[2020-07-26] MEDS: LORazepam 0.5 MG Tablet 0.25 MG PO (08:13)
[2020-07-26] MEDS: Venlafaxine XR 37.5 MG Capsule PO (08:14)
[2020-07-26] MEDS: amLODIPine 5 MG Tablet PO (08:14)
[2020-07-26] MEDS: Clopidogrel Bisulfate 75 MG Tablet PO (08:15)
[2020-07-26] MEDS: Rivaroxaban 15 MG Tablet PO ×2 (08:15→17:21)
[2020-07-26] MEDS: Ranolazine 500 MG Tablet PO (08:15)
[2020-07-26] MEDS: Lisinopril 20 MG Tablet PO (08:16)
[2020-07-26] MEDS: Senna/Docusate Sodium 1 Tablet 2 TABLET PO ×2 (08:18→20:14)
[2020-07-26] MEDS: Neuropathy Pain Cream Compound 60 CLICK TUBE TOPICAL ×2 (08:18→20:15)
[2020-07-26 08:26] VITALS: BP 131/69; PULSE 72
--- NOTE | 2020-07-26 08:41 | NURSING ---
This nurse and nurse Samantha wasted 0.25mg of Ativan per order.
[2020-07-26 09:01] VITALS: BP 135/71; PULSE 68; RESP 16; TEMP 36.6; O2SAT 94
[2020-07-26] MEDS: Gabapentin 100 MG Capsule PO ×3 (09:57→17:21)
[2020-07-26] MEDS: Atenolol 25 MG Tablet 12.5 MG PO (12:18)
--- NOTE | 2020-07-26 18:24 | PCM.PN.BLA ---
Progress Note Afebrile VSS Maintaining appropriate oxygen saturation on RA Oral intake is improving Discussed with nursing - no problems that need addressed Reviewed the PT/OT/ST notes Medication list reviewed. He is sleeping well IF the nurses do not wake him up too often...he usually goes to bed about 9 PM and then he is awakened for VS's. He does go back to sleep though. I observed him walking in the heredia with the WW and he was smiling and willingly participating. His was in today and she feels she will be able to do the things he still needs some assistance with at home. His mood is better. He is tolerating the Effexor XR with no adverse side effects and he is not as drowsy in the morning. He is also tolerating the decrease in the Ativan in the AM without any adverse consequences. alert, smiling, walking in the heredia with the WW, interacting with staff Lungs - CTA HRRR, no gallop abd - soft, NT less edema of the R knee today and the ecchymosis is resolving, no erythema denies calf tenderness affect is less flat Impressions 1. debility due to recent R TKA 2. depression 3. chronic pain S. Pain control is much better and he did not c/o hip pain at all today 4. cognitive dysfunction - he is progressing with ST......I suspect depression contributes to this significantly Plan DC tomorrow. DC the Lorazepam C at [place]. will discuss with the SW having a psych nurse and a SW Inpatient E&M: [id number] Subs Hosp L2
[2020-07-26 19:54] VITALS: BP 110/67; PULSE 55; RESP 18; TEMP 36.6; O2SAT 98
[2020-07-26 20:00] VITALS: PULSE 55; RESP 18; O2SAT 98
[2020-07-26] MEDS: Atorvastatin Calcium 80 MG Tablet PO (20:12)
[2020-07-27] MEDS: Acetaminophen 500 MG Tablet 1000 MG PO ×2 (05:37→13:19)
[2020-07-27] MEDS: oxyCODONE 5 MG Tablet PO ×2 (05:38→13:20)
--- NOTE | 2020-07-27 05:56 | NURSING ---
staff in to pass am medications , shower or am care offered and pt declined stating that he was going to be lazy and do it when he gets home. staff emptied pt urinal and it was noted that his urine was tea colored with a strong odor. pt continues to void small amts, pvrs had been unremarkable. pt proceeded to use the urinal again and urine color was slightly improved to a light [place] to dark yellow in color. staff wished pt good luck at home and encouraged pt to drink more fluids, pt smiled and stated i know i've been told that since i can here. rn made aware of the above charting
[2020-07-27] MEDS: LORazepam 0.5 MG Tablet 0.25 MG PO (08:22)
[2020-07-27] MEDS: Rivaroxaban 15 MG Tablet PO (08:22)
[2020-07-27] MEDS: Venlafaxine XR 37.5 MG Capsule PO (08:22)
[2020-07-27] MEDS: Gabapentin 100 MG Capsule PO ×2 (08:22→08:23)
[2020-07-27] MEDS: amLODIPine 5 MG Tablet PO (08:23)
[2020-07-27] MEDS: Neuropathy Pain Cream Compound 60 CLICK TUBE TOPICAL (08:23)
[2020-07-27] MEDS: Ranolazine 500 MG Tablet PO (08:24)
[2020-07-27] MEDS: Atenolol 25 MG Tablet 12.5 MG PO (08:24)
[2020-07-27] MEDS: Senna/Docusate Sodium 1 Tablet 2 TABLET PO (08:24)
[2020-07-27] MEDS: Clopidogrel Bisulfate 75 MG Tablet PO (08:24)
[2020-07-27] MEDS: Lisinopril 20 MG Tablet PO (08:25)
[2020-07-27 09:57] VITALS: BP 143/80; PULSE 62; RESP 16; TEMP 36.7; O2SAT 96
--- NOTE | 2020-07-27 10:01 | DCINST_ITS ---
- Discharge Diagnoses Current Active Problems: Current Active and Chronic Problems (Last Updated 07/12/20 @ 17:49 by Makenzie Hernandez) Debility (Acute) Osteoarthritis of right knee (Chronic) Peroneal DVT (deep venous thrombosis) (Acute) Hypertension (Chronic) Hyperlipidemia (Chronic) Anxiety (Chronic) You will use the following diet at home:: Cardiac - Low-fat, low-salt Your food should be the consistency of: Regular Your liquids should be the consistency of: Regular/Thin Discharge Activity: May Not Drive, May Shower - With assistance, Use Walker, - - Do the exercises given to you by the therapists twice a day Ice area for (Minutes): 15 - ice the R knee at least twice a day after exercise Weight Bearing Status: Weight bearing as tolerated Keep extremity elevated above heart level: Right Leg Call your doctor if your incision/area has: Increased Pain/ Swelling, Increased Redness, Foul Smelling Discharge Call your doctor if you observe: Fever of 101 or Higher, Inability to urinate, Inability to have a bowel movement, Shortness of breath, Dizziness, Fainting spells, Swelling in the ankles, Chest pain, Increased palpitations (irregular heartbeat), Uncontrolled pain Cleanse incision/area with: Soap & Water Additional Instructions: 1. You developed a blood clot in your leg after the knee surgery. This is not uncommon. You will need to take blood thinners for a total of 90 days. The blood thinner you are taking is called Xarelto (Rivaroxaban). The first 3 weeks of this medication you take 15 mg Twice a day and after that you convert to 20 mg ONCE a day. You will start the 20 mg once a day on 08/03/20. Call your family doctor if any unusual bleeding such as bleeding from the gums, blood from the anus, blood in the urine, nose bleeds, large bruises or you cough up blood. 2. The pain in the R hip area is likely coming from nerve compression in the back. The cream and the Gabapentin have helped with this and we are going to continue these meds after discharge. The gabapentin and Oxycodone can make you sleepy and so we have discontinued Lo razepam in the morning......you were too sleepy when taking this medication in addition to the Gabapentin and the Oxycodone. 3. I have changed the Lexapro to another antidepressant called Effexor. Effexor treats anxiety and depression like the Lexapro BUT, Effexor also helps control chronic pain. 4. You are mildly anemic and this is likely due to blood loss with the surgery. Your doctor will want to recheck your blood count in a couple weeks to make sure that it is getting better. 5. Your knee will get stiff if you do not continue to do the exercises every day. Get up and take a walk several times a day, at least every 1-2 hours while awake. This helps to prevent blood clots also. 6. If you have any questions after you leave rehab you can call me at [phone] (office) or [phone] (cell). It was a pleasure meeting you Luis. Please call if we can help with anything after you leave. You will be getting therapy at home to continue your rehabilitation. 7. Do NOT take Aspirin, Motrin, Advil or medications like this while you are taking the Xarelto to thin your blood. If you have any doubt about a medication ask the pharmacist, call me or call your family doctor. Pending Tests on Discharge: none Allergies/Adverse Reactions: Allergies No Known Allergies Allergy (Verified 06/15/17 17:24) Medications to take at Discharge Atenolol 12.5 mg PO DAILY 06/15/17 Crestor 40 mg PO DAILY 06/15/17 Lisinopril 20 mg PO DAILY 06/15/17 Plavix 75 mg PO DAILY 06/15/17 Ranexa 500 mg PO DAILY 06/15/17 Super B Maxi Complex Caplet 1 PO DAILY 06/15/17 Vitamin B-12 1 PO DAILY 06/15/17 Amlodipine [Norvasc] 5 mg PO DAILY 07/12/20 Ondansetron HCl [Zofran] 4 mg PO Q8H PRN PRN 07/12/20 Acetaminophen [Tylenol] 1,000 mg PO Q8 tab 07/27/20 Gabapentin [Neurontin] 100 mg PO TIDCM #90 cap 07/27/20 Magnesium Hydroxide [Milk Of Magnesia] 30 ml PO .PRN X 1 PRN udc 07/27/20 Neuropathy Pain Cream Compound 0 click TOPICAL BID gm 07/27/20 Oxycodone [Oxyir] 5 mg PO Q6H PRN PRN #21 tab 07/27/20 Rivaroxaban [Xarelto] 15 mg PO BID #13 tab 07/27/20 Rivaroxaban [Xarelto] 20 mg PO DAILY@1745 #30 tab 07/27/20 Venlafaxine XR [Effexor Xr] 37.5 mg PO DAILY #30 cap 07/27/20 The following prescriptions were given: Venlafaxine XR [Effexor Xr] 37.5 mg PO DAILY #30 cap Transmission Status: Pending to [id number] Gabapentin [Neurontin] 100 mg PO TIDCM #90 cap Transmission Status: Pending to [id number] Oxycodone [Oxyir] 5 mg PO Q6H PRN PRN #21 tablet PRN Reason: pain > 4 Transmission Status: Received by [id number] Rivaroxaban [Xarelto] 15 mg PO BID #13 tab Transmission Status: Pending to [id number] Rivaroxaban [Xarelto] 20 mg PO DAILY@1745 #30 tab Transmission Status: Pending to [id number] Primary Care Physician: Roberto Woody MD [Primary Care Provider] - Please follow up with your Primary Care Physician in: 7-10 days Test Results: Test results from this visit will be discussed in further detail at your follow- up appointment, if applicable. Please Follow Up With: Ajay Adams DO Please Follow Up With: Roberto Woody MD Proposed Discharge Date: 07/27/20
--- NOTE | 2020-07-27 11:38 | DS.PCM_ITS ---
Discharge Date and Diagnosis - Problem List Patient Problems: Active and Suspected Problems (Last Updated 07/12/20 @ 17:49 by Makenzie Hernandez) Macrocytic anemia (Acute) Debility (Acute) Peroneal DVT (deep venous thrombosis) (Acute) Date of Admission: 07/12/20 Date of Discharge: 07/27/20 - Primary Discharge Diagnosis Acute Problems: Active Problems (Last Updated 07/12/20 @ 17:49 by Makenzie Hernandez) Physical Debility due to recent R TKA(Acute) R Peroneal DVT post op (deep venous thrombosis) (Acute) Macrocytic anemia (Acute) - suspect due to blood loss with surgery with increased reticulocytosis Dehydration Suspected Problems: Osteoporosis sleep disordered breathing - Secondary Discharge Diagnosis Chronic Problems: Chronic Problems (Last Updated 07/12/20 @ 17:49 by Makenzie Hernandez) Chronic Radicular pain R lateral buttock and hip (Chronic) Depression (Chronic) CAD (coronary artery disease) (Chronic) Chronic back pain (Chronic) Osteoarthritis (Chronic) Hypertension (Chronic) Hyperlipidemia (Chronic) Anxiety (Chronic) Chronic Benzodiazepine use Admission to the hospital in 2017 for severe depression with suicidal ideation Chronic pain S. Hospital Course and Treatment Imaging Results: Laboratory Last Values WBC 6.3 K/mm3 (4.4-11.0) 07/23/20 05:37 RBC 3.69 M/mm3 (4.6-6.2) L 07/23/20 05:37 Hgb 11.3 g/dL (13.0-16.5) L 07/23/20 05:37 Hct 36.5 % (40-54) L 07/23/20 05:37 MCV 98.9 fL (80-94) H 07/23/20 05:37 MCH 30.6 pg (27.0-32.0) 07/23/20 05:37 MCHC 31.0 g/dL (32-36) L 07/23/20 05:37 RDW Std Deviation 52.1 fl (35.1-43.9) H 07/23/20 05:37 RDW Coeff of Tulio 14.5 % (11.6-14.6) 07/23/20 05:37 Plt Count 401 K/mm3 (150-450) 07/23/20 05:37 MPV 9.3 fl (6.2-12.0) 07/23/20 05:37 Immature Gran % (Auto) 3.000 % (0.0-0.9) H 07/13/20 06:46 Neut % (Auto) 63.2 % (47-70) 07/13/20 06:46 Lymph % (Auto) 15.6 % (19-41) L 07/13/20 06:46 Archer % (Auto) 15.0 % (0-10) H 07/13/20 06:46 Eos % (Auto) 2.4 % (0-5) 07/13/20 06:46 Baso % (Auto) 0.8 % (0-1) 07/13/20 06:46 Absolute Neuts (auto) 4.0 X10^3/uL (2.0-7.7) 07/13/20 06:46 Absolute Lymphs (auto) 0.99 X10^3/uL (0.83-4.51) 07/13/20 06:46 Nucleated RBC % 0.3 % (0-5) 07/13/20 06:46 Sodium 138 mmol/L (136-145) 07/23/20 05:37 Potassium 3.8 mmol/L (3.5-5.1) 07/23/20 05:37 Chloride 105 mmol/L (98-107) 07/23/20 05:37 Carbon Dioxide 27.0 mmol/L (21.0-32.0) 07/23/20 05:37 Anion Gap 6 (5-15) 07/23/20 05:37 BUN 21 mg/dL (7-18) H 07/23/20 05:37 Creatinine 1.17 mg/dL (0.70-1.30) 07/23/20 05:37 Estim Creat Clear Calc 47.08 ml/min 07/23/20 05:37 Est GFR (MDRD) Af Amer 77 mL/min (>60) 07/23/20 05:37 Est GFR (MDRD) Non-Af 64 mL/min (>60) 07/23/20 05:37 BUN/Creatinine Ratio 17.9 RATIO (10-20) 07/23/20 05:37 Glucose 109 mg/dL (74-106) H 07/23/20 05:37 Calcium 8.7 mg/dL (8.5-10.1) 07/23/20 05:37 Phosphorus 2.6 mg/dL (2.5-4.9) 07/13/20 06:46 Magnesium 2.4 mg/dL (1.6-2.6) 07/13/20 06:46 Total Bilirubin 1.60 mg/dL (0.20-1.00) H 07/13/20 06:46 AST 55 U/L (15-37) H 07/13/20 06:46 ALT 38 U/L (16-61) 07/13/20 06:46 Alkaline Phosphatase 74 U/L (45-117) 07/13/20 06:46 Total Protein 6.6 g/dL (6.4-8.2) 07/13/20 06:46 Albumin 3.0 g/dL (3.2-5.0) L 07/13/20 06:46 Globulin 3.6 g/dL (2.2-4.2) 07/13/20 06:46 Albumin/Globulin Ratio 0.8 RATIO (0.9-2.4) L 07/13/20 06:46 none Operations: None, total knee replacement - prior to admission to inpt rehab on 07/06/20 Procedures: None Summary of Care Provided: The patient is a 80 year old M with a past medical history of hypertension, hyperlipidemia, coronary artery disease, chronic depression/anxiety with a hospitalization in 2017 for severe depression with suicidal ideation, chronic back and right lateral buttock/right hip pain and osteoarthritis. He has also been experiencing cognitive decline. He has been treated by Dr. Navarrete in the past for right hip pain and has had lumbar injections and an ablation with no significant relief. On 07/06/2020 he underwent a right total knee arthroplasty by Dr. Adams because R knee osteoarthritis was suspected to be contributing to R hip pain. Post-operatively he developed DVT in the R peroneal V and was started on Xarelto. He was admitted to the inpt rehab unit at [facility] on 07/12/2020 for greater than 3 hours of therapy daily to restore him at or near his prior level of function. PT/OT/ST was ordered. Luis's biggest complaint following knee surgery was still R hip pain. The pain increases with sitting and is relieved with lying down. He has failed Lumbar epidurals and a nerve ablation in the past. He was unwilling/unable to do PT/OT due to the pain. He was started on Gabapentin 100 mg TID and also a neuropathic compounded cream containing lidocaine, amitriptyline and gabapentin. The very next day he was able to do therapy and the pain was significantly improved. He unfortunately continued to be somnolent in the mornings and we elected to wean the Lorazepam off which has helped. He has been on the same dose of 10 mg Lexapro since a nervous breakdown with suicidal ideation in 2017. He continues to have flat affect and little motivation to help himself. He is very frustrated that he continues to have severe pain and he lies down frequently in a position throughout the day per his . We elected to transition him from Lexapro to Effexor in hopes that the Effexor would also help with chronic pain management. After a 5 day washout period he was started on Effexor XR 37.5 mg daily. He has had no adverse reactions to Effexor. After the severe pain in the right hip was controlled \Luis began to participate with physical therapy and was seen ambulating in the halls with a wheeled walker smiling and interacting with staff. He continues to sleep well at night. We have not had a problem with anxiety since the lorazepam was discontinued. Hemoglobin has been stable at 11.3. Oral intake is variable and he tends to not drink enough fluids but, creatinine has been stable. Prior to discharge he was ambulating 150 feet x 2 with an up walker. He also ambulated outside on the sidewalk with no loss of balance. He was standby assist with all transfers from various surfaces on 07/26/2020 but required increased time/effort. He went up to curb steps with contact-guard assist and then backed down on . Luis still requires moderate assistance for bathing and lower body dressing. He is contact-guard assist with toilet transfer, toileting, grooming. He was using the prosthodontist/owner to don his socks with minimal difficulty. He was discharged home on 06/26/2020 and will have PT/OT/ST as well as a nurse and social problems specialist with home health care. His affect is still flat but he just recently started the Effexor. I think he would benefit from psychotherapy. Luis had a CT of the leg in 2017 at [facility] that showed diffuse bone loss. He would benefit from a DEXA as an OP to accurately quantify the degree of bone loss and need for treatment. He was observed sleeping during his admission and had brief apneic periods and some myoclonic jerks. I suspect he has sleep disordered breathing and I recommend he have an OP sleep study to be evaluated for sleep apnea. This would contribute to cognitive dysfunction, poor pain control and depression. He was discharged on 07/27/20 on medications previously listed and will need to take Xarelto for a period of 3 months. Alert, oriented x3, smiling and conversant Mucous membranes-dry, no mucosal lesions No nuchal rigidity, trachea is midline, no cervical adenopathy Lungs-diminished but clear to auscultation throughout Heart-regular rate and rhythm, no gallop Abdomen-soft, nontender, nondistended, bowel sounds present Decreasing edema of the right knee. Ecchymosis is fading and there is no erythema. Lamar have been removed and the incision is intact with no discharge. There is mild increased warmth to touch secondary to inflammation. No focal neurologic deficits No rashes, no skin breakdown This note was generated with [employer] dictation software. It may contain incorrect words, spelling, and punctuation that were not noted in checking the note before signing. Patient Problems: Active and Suspected Problems (Last Updated 07/12/20 @ 17:49 by Makenzie Hernandez) Macrocytic anemia (Acute) Debility (Acute) Peroneal DVT (deep venous thrombosis) (Acute) - Physical Exam Vitals/I&O's: Vital Signs Temp Pulse Resp BP Pulse Ox 98.1 F 62 16 143/80 H 96 07/27/20 09:57 07/27/20 09:57 07/27/20 09:57 07/27/20 09:57 07/27/20 09:57 Oxygen Delivery Method Room Air Weight: 164 lb 3.91 oz Body Mass Index (BMI) 26.6 Intake and Output for Last 24 Hours 07/25/20 07/26/20 07/27/20 23:59 23:59 23:59 Intake Total 840 / 840 660 / 660 420 / 420 Output Total 300 / 300 Balance 540 / 540 660 / 660 420 / 420 Current Medications Acetaminophen (Tylenol) 1,000 mg PO Q8 [facility] Last Admin: 07/27/20 05:37 Dose: 1,000 mg Documented by: Amlodipine Besylate (Norvasc) 5 mg PO DAILY [facility] Last Admin: 07/27/20 08:23 Dose: 5 mg Documented by: Atenolol (Tenormin (Beta Becki)) 12.5 mg PO DAILY [facility] Last Admin: 07/27/20 08:24 Dose: 12.5 mg Documented by: Atorvastatin Calcium (Lipitor) 80 mg PO QHS [facility] Last Admin: 07/26/20 20:12 Dose: 80 mg Documented by: Bisacodyl (Dulcolax) 10 mg RECTAL .PRN X 1 PRN PRN Reason: Constipation Clopidogrel Bisulfate (Plavix) 75 mg PO DAILY [facility] Last Admin: 07/27/20 08:24 Dose: 75 mg Documented by: Compound Med (Neuropathy Pain Cream Compound) 0 click TOPICAL BID [facility]; Protocol Last Admin: 07/27/20 08:23 Dose: 2 click Documented by: Gabapentin (Neurontin) 100 mg PO TIDCM [facility] Last Admin: 07/27/20 08:23 Dose: 100 mg Documented by: Lisinopril (Zestril) 20 mg PO DAILY [facility] Last Admin: 07/27/20 08:25 Dose: 20 mg Documented by: Lorazepam (Ativan) 0.25 mg PO DAILY@0800 [facility] Last Admin: 07/27/20 08:22 Dose: 0.25 mg Documented by: Magnesium Hydroxide (Milk Of Magnesia) 30 ml PO .PRN X 1 PRN PRN Reason: Constipation Ondansetron HCl (Zofran Odt) 4 mg PO Q8H PRN PRN PRN Reason: NAUSEA/VOMITING Oxycodone HCl (Oxyir) 5 mg PO Q4H PRN PRN PRN Reason: Pain Score 4-10/10 Last Admin: 07/26/20 17:27 Dose: 5 mg Documented by: Oxycodone HCl (Oxyir) 5 mg PO DAILY@0600 [facility] Last Admin: 07/27/20 05:38 Dose: 5 mg Documented by: Ranolazine (Ranexa) 500 mg PO DAILY [facility] Last Admin: 07/27/20 08:24 Dose: 500 mg Documented by: Rivaroxaban (Xarelto) 20 mg PO DAILY@1745 [facility] Rivaroxaban (Xarelto) 15 mg PO BID@0745,1745 [facility] Stop: 08/02/20 17:46 Last Admin: 07/27/20 08:22 Dose: 15 mg Documented by: Senna/Docusate Sodium (Senokot-S, Roxi-Colace) 2 tablet PO BID [facility] Last Admin: 07/27/20 08:24 Dose: 2 tablet Documented by: Venlafaxine HCl (Effexor Xr) 37.5 mg PO DAILY [facility] Last Admin: 07/27/20 08:22 Dose: 37.5 mg Documented by: Discharge Activity: May Not Drive, May Shower - With assistance, Use Walker, - - Do the exercises given to you by the therapists twice a day Ice area for (Minutes): 15 - ice the R knee at least twice a day after exercise Weight Bearing Status: Weight bearing as tolerated Keep extremity elevated above heart level: Right Leg Call your doctor if your incision/area has: Increased Pain/ Swelling, Increased Redness, Foul Smelling Discharge Call your doctor if you observe: Fever of 101 or Higher, Inability to urinate, Inability to have a bowel movement, Shortness of breath, Dizziness, Fainting spells, Swelling in the ankles, Chest pain, Increased palpitations (irregular heartbeat), Uncontrolled pain Cleanse incision/area with: Soap & Water Home Medications: Medications to take at Discharge Atenolol 12.5 mg PO DAILY 06/15/17 Crestor 40 mg PO DAILY 06/15/17 Lisinopril 20 mg PO DAILY 06/15/17 Plavix 75 mg PO DAILY 06/15/17 Ranexa 500 mg PO DAILY 06/15/17 Super B Maxi Complex Caplet 1 PO DAILY 06/15/17 Vitamin B-12 1 PO DAILY 06/15/17 Amlodipine [Norvasc] 5 mg PO DAILY 07/12/20 Ondansetron HCl [Zofran] 4 mg PO Q8H PRN PRN 07/12/20 Acetaminophen [Tylenol] 1,000 mg PO Q8 tab 07/27/20 Gabapentin [Neurontin] 100 mg PO TIDCM #90 cap 07/27/20 Magnesium Hydroxide [Milk Of Magnesia] 30 ml PO .PRN X 1 PRN udc 07/27/20 Neuropathy Pain Cream Compound 0 click TOPICAL BID gm 07/27/20 Oxycodone [Oxyir] 5 mg PO Q6H PRN PRN #21 tab 07/27/20 Rivaroxaban [Xarelto] 15 mg PO BID #13 tab 07/27/20 Rivaroxaban [Xarelto] 20 mg PO DAILY@1745 #30 tab 07/27/20 Venlafaxine XR [Effexor Xr] 37.5 mg PO DAILY #30 cap 07/27/20 Following Prescriptions Were Given to Patient: Venlafaxine XR [Effexor Xr] 37.5 mg PO DAILY #30 cap Transmission Status: Received by [id number] Gabapentin [Neurontin] 100 mg PO TIDCM #90 cap Transmission Status: Received by [id number] Oxycodone [Oxyir] 5 mg PO Q6H PRN PRN #21 tab PRN Reason: pain > 4 Transmission Status: Received by [id number] Rivaroxaban [Xarelto] 15 mg PO BID #13 tab Transmission Status: Received by [id number] Rivaroxaban [Xarelto] 20 mg PO DAILY@1745 #30 tab Transmission Status: Received by [id number] Primary Care Physician: Roberto Woody MD [Primary Care Provider] - Please follow up with your Primary Care Physician in: 7-10 days Please Follow Up With: Ajay Adams, Please Follow Up With: Roberto Woody MD Disposition: Home with Home Health Minutes spent on discharge:: 45 Patient Condition:: Stable - improving Medical Necessity - Tobacco Use Smoking Status: Never smoker Tobacco Use: Non-smoker Meaningful Use Info Meaningful Use Diagnoses (Choose all that apply): None applicable Inpatient E&M: 83578 Disch Hosp
--- NOTE | 2020-07-27 13:40 | NURSING ---
PT DC'D HOME. DC INSTRUCTIONS/ORDERS REVIEWED WITH PT & SPOUSE BY THIS NURSE & DR SEAY. ALL QUESTIONS ANSWERED.
== END 2020-07-27 13:50 | disposition home health service (06) | DRG 560 ==
PROVIDERS: Internal Medicine; Admitting Provider Family Medicine Geriatric Medicine; PCP Family Medicine; Visit Provider Family Medicine Geriatric Medicine
DX: Z47.1 Aftercare following joint replacement surgery (principal); I82.451 Acute embolism and thrombosis of right peroneal vein; Z96.651 Presence of right artificial knee joint; I25.10 Atherosclerotic heart disease of native coronary artery without angina pectoris; I10 Essential (primary) hypertension; F32.9 Major depressive disorder, single episode, unspecified; F41.9 Anxiety disorder, unspecified; E78.5 Hyperlipidemia, unspecified; G89.4 Chronic pain syndrome; G20 Parkinson's disease
CPT/HCPCS: 36415; 80048; 80053; 83735; 84100; 85025; 85027; 92507; 92523; 93005; 97110; 97116; 97124; 97129; 97130; 97162; 97166; 97530; 97535; 97802; 97803

== ENCOUNTER 2020-12-02 11:00 | Outpatient (RCR) | payer MEDICARE, BC, SELFPAY | END 2020-12-02 23:59 | LOC: IMMUN 11:00 | PROVIDERS: PCP Family Medicine; Visit Provider Family Medicine | DX: Z23 Encounter for immunization (principal) | CPT/HCPCS: 0011A; 0012A; 91301 ==

== ENCOUNTER → 2021-08-05 14:19 | Outpatient (CLI) | payer MEDICARE, BC, SELFPAY ==
[2021-08-08 18:48] LABS: Carbohydrate Ag 19-9 2261 9 U/mL (0-35)
== END ==
LOC: LAB 14:22
PROVIDERS: PCP Family Medicine; Referring Provider Internal Medicine Gastroenterology; Visit Provider Internal Medicine Gastroenterology
DX: K86.89 Other specified diseases of pancreas (principal)
CPT/HCPCS: 36415; 86301

== ENCOUNTER → 2021-09-12 10:42 | Outpatient (CLI) | payer MEDICARE, BC, SELFPAY | PROVIDERS: PCP Family Medicine; Referring Provider Urology; Visit Provider Urology | DX: C61 Malignant neoplasm of prostate (principal) | CPT/HCPCS: 36415; 84153 ==

== ENCOUNTER → 2021-10-13 10:13 | Outpatient (CLI) | payer MEDICARE, BC, SELFPAY ==
--- NOTE | 2021-10-13 10:15 | MRI_ITS ---
EXAM: MR ABDOMEN WITHOUT INTRAVENOUS CONTRAST, MRCP PROTOCOL : 1940 CLINICAL INDICATION: pancreatic cyst, weight loss TECHNIQUE: Multiplanar and multisequence MR images of the abdomen without intravenous contrast obtained with MRCP sequence. Three-dimensional post-processing reconstructions were performed. This report was created using [employer] report generation technology. COMPARISON: CT abdomen and pelvis November 07, 2011 FINDINGS: LOWER THORAX: Unremarkable. No pleural effusion. LIVER: Unremarkable. Normal morphology. GALLBLADDER AND BILE DUCTS: Small stones are noted within the gallbladder. Common bile duct measures 4 mm in maximum diameter No gallbladder distention or wall edema. PANCREAS: 8 mm cyst noted within the head of the pancreas. 10 mm cyst noted within the neck of the pancreas. Several additional cysts are noted within the tail of the pancreas largest one measuring 6 mm. No dilatation of the pancreatic duct. SPLEEN: Unremarkable. Non-enlarged. ADRENALS: Unremarkable. No nodules. KIDNEYS AND URETERS: Benign-appearing bilateral renal cysts largest one measuring 3.2 cm arising from the lower pole of the right kidney. INTRAPERITONEAL SPACE: Unremarkable. No ascites or other fluid collection. BONES/JOINTS: Prominent S-shaped scoliosis of the thoracolumbar spine. VASCULATURE: Unremarkable. Abdominal aorta is non-dilated. LYMPH NODES: No enlarged lymph nodes. MRI/MRCP Abdomen without Contrast IMPRESSION: 1. Cholelithiasis. 2. Normal common bile duct. 3. Multiple pancreatic cysts with normal pancreatic duct. A follow-up MRI in 2 years recommended if clinically warranted. at 0923 Reported and signed by: Juan Aly MD Electronically Signed: Juan Aly MD at 9:22 EST Tel , Service support ,
== END ==
PROVIDERS: PCP Family Medicine; Referring Provider Internal Medicine Gastroenterology; Visit Provider Internal Medicine Gastroenterology
DX: D13.6 Benign neoplasm of pancreas (principal)
CPT/HCPCS: 74181

== ENCOUNTER → 2021-10-20 13:45 | Outpatient (CLI) | payer MEDICARE, BC, SELFPAY | PROVIDERS: PCP Family Medicine; Visit Provider Internal Medicine Gastroenterology | DX: K86.2 Cyst of pancreas (principal) | CPT/HCPCS: 36415; 86301 ==

== ENCOUNTER 2021-11-17 11:23 | Outpatient (CLI) | payer MEDICARE, BC, SELFPAY ==
[2021-11-17 11:37] VITALS: BP 85/64; BP 87/57; PULSE 75; RESP 16; TEMP 36.6; O2SAT 96
[2021-11-17 11:49] VITALS: BP 83/54; PULSE 72
--- NOTE | 2021-11-17 12:03 | NURSING ---
Dr Antoine contacted about pt's hypotension. Order received for bolus.
[2021-11-17 12:05] VITALS: BP 83/54; PULSE 81; RESP 18; TEMP 36.6; O2SAT 96; BMI 25.8
[2021-11-17] MEDS: 0.9% Saline Lock 10 ML Syringe IV (12:15)
[2021-11-17 12:43] VITALS: BP 96/61; PULSE 66
[2021-11-17 13:05] VITALS: BP 96/67; PULSE 65; RESP 16; TEMP 36.7; O2SAT 96
[2021-11-17 14:00] VITALS: BP 105/64; PULSE 62; RESP 16; TEMP 36.8; O2SAT 96
== END 2021-11-17 23:59 | disposition home or self-care (01) ==
LOC: MS3OUT 11:23 → MS3 11:23
PROVIDERS: PCP Family Medicine; Referring Provider Internal Medicine Pulmonary Disease; Visit Provider Internal Medicine Pulmonary Disease
DX: Z23 Encounter for immunization (principal); U07.1 COVID-19
CPT/HCPCS: J7040; J7050; M0243; A4216; Q0244

== ENCOUNTER 2022-02-09 10:42 | Outpatient (CLI) | payer MEDICARE, BC, SELFPAY ==
[2022-02-10 18:26] LABS: Carbohydrate Ag 19-9 2261 10 U/mL (0-35)
== END 2022-02-09 23:59 | disposition home or self-care (01) ==
PROVIDERS: PCP Family Medicine; Visit Provider Internal Medicine Gastroenterology
DX: R10.9 Unspecified abdominal pain (principal); K86.2 Cyst of pancreas; K86.89 Other specified diseases of pancreas
CPT/HCPCS: 36415; 86301

== ENCOUNTER 2022-05-01 15:10 | Outpatient (CLI) | payer MEDICARE, BC, SELFPAY ==
[2022-05-04 13:50] LABS: Carbohydrate Ag 19-9 2261 12 U/mL (0-35)
== END 2022-05-01 23:59 | disposition home or self-care (01) ==
LOC: LAB 15:11
PROVIDERS: PCP Family Medicine; Visit Provider Internal Medicine Gastroenterology
DX: K86.2 Cyst of pancreas (principal); K86.89 Other specified diseases of pancreas; R10.9 Unspecified abdominal pain
CPT/HCPCS: 36415; 86301

== ENCOUNTER → 2022-09-14 | Outpatient (CLI) | payer MEDICARE, BC, SELFPAY | END | disposition home or self-care (01) | LOC: LAB 11:17 | PROVIDERS: PCP Family Medicine; Referring Provider Registered Nurse; Visit Provider Registered Nurse | DX: C61 Malignant neoplasm of prostate (principal) | CPT/HCPCS: 36415; 84153 ==

== ENCOUNTER → 2022-10-30 | Outpatient (CLI) | payer MEDICARE, BC, SELFPAY ==
[2022-11-01 14:06] LABS: Carbohydrate AG 19-9 9 U/mL (0-35)
== END | disposition home or self-care (01) ==
LOC: LAB 13:13
PROVIDERS: PCP Family Medicine; Referring Provider Internal Medicine Gastroenterology; Visit Provider Internal Medicine Gastroenterology
DX: K86.89 Other specified diseases of pancreas (principal)
CPT/HCPCS: 36415; 86301

== ENCOUNTER → 2022-11-21 | Outpatient (CLI) | payer MEDICARE, BC, SELFPAY ==
--- NOTE | 2022-11-21 12:47 | MRI_ITS ---
EXAM: MR ABDOMEN WITHOUT INTRAVENOUS CONTRAST, MRCP PROTOCOL CLINICAL INDICATION: pancreatic cyst monitoring TECHNIQUE: Multiplanar and multisequence MR images of the abdomen without intravenous contrast obtained with MRCP sequence. Three-dimensional post-processing reconstructions were performed. COMPARISON: 10/13/2021 FINDINGS: LOWER THORAX: Unremarkable. No pleural effusion. LIVER: Unremarkable. Normal morphology. GALLBLADDER AND BILE DUCTS: Small stones are noted within the gallbladder. Common bile duct measures 3 mm in maximum diameter No gallbladder distention or wall edema. PANCREAS: Several T2 hyperintense or cystic lesions are again seen in the pancreas. Stable 8 mm lesion in the pancreatic head. Slight increase in size of 1.5 cm lesion in the neck, previously measuring 1.2 cm. Multiple stable cystic lesions in the tail of the pancreas, largest measuring 6 mm. No main pancreatic duct dilatation. SPLEEN: Unremarkable. Non-enlarged. ADRENALS: Unremarkable. No nodules. KIDNEYS AND URETERS: Benign-appearing bilateral renal cysts are again seen. INTRAPERITONEAL SPACE: Unremarkable. No ascites or other fluid collection. BONES/JOINTS: Prominent S-shaped scoliosis of the thoracolumbar spine. VASCULATURE: Unremarkable. Abdominal aorta is non-dilated. LYMPH NODES: No enlarged lymph nodes. MRI/MRCP Abdomen without Contrast IMPRESSION: Slight increase in size of a 1.5 cm cystic lesion in the pancreatic neck. Stable size of multiple other smaller cystic lesions throughout the pancreas as described above. No definite solid components. Per ACR criteria, recommend additional follow-up MRCP in 2 years. Electronically Signed: Vamsi Parks MD at 16:07 EST ,
== END | disposition home or self-care (01) ==
LOC: MRI 12:47
PROVIDERS: PCP Family Medicine; Visit Provider Internal Medicine Gastroenterology
DX: K86.2 Cyst of pancreas (principal)
CPT/HCPCS: 74181

== ENCOUNTER → 2023-04-26 | Outpatient (CLI) | payer MEDICARE, BC, SELFPAY ==
--- NOTE | 2023-04-26 15:19 | MRI_ITS ---
EXAM: MR ABDOMEN WITHOUT INTRAVENOUS CONTRAST, MRCP PROTOCOL CLINICAL INDICATION: pancreatic cyst monitoring TECHNIQUE: Multiplanar and multisequence MR images of the abdomen without intravenous contrast obtained with MRCP sequence. Three-dimensional post-processing reconstructions were performed. COMPARISON: 10/13/2021, 11/21/2022 FINDINGS: LOWER THORAX: Unremarkable for MRI. LIVER: Unremarkable. Normal morphology. GALLBLADDER AND BILE DUCTS: Small gallstones are stable. Common bile duct measures 3 mm in maximum diameter with normal tapering at the ampulla. No gallbladder distention or wall edema. PANCREAS: Several T2 hyperintense cystic lesions are again seen in the pancreas. Stable 8 mm lesion in the pancreatic head. 1.3 x 1.5 cm lesion in the pancreatic neck, is unchanged. The pancreatic cysts are stable without enlarging or new lesion seen. No main pancreatic duct dilatation. SPLEEN: Unremarkable. Non-enlarged. ADRENALS: Unremarkable. No nodules. KIDNEYS AND URETERS: Benign-appearing bilateral parapelvic renal cysts are again seen. INTRAPERITONEAL SPACE: Unremarkable. No ascites or other fluid collection. BONES/JOINTS: Stable S-shaped scoliosis of the thoracolumbar spine. No bone marrow edema. VASCULATURE: Unremarkable. Abdominal aorta is non-dilated. LYMPH NODES: No enlarged lymph nodes. MRI/MRCP Abdomen without Contrast IMPRESSION: Stable multiple pancreatic cystic lesions throughout the pancreas. ACR White Paper guidelines (Mo, et al. JACR 2017; 14(7):911-923) suggest a contrast-enhanced, pancreas-protocol abdominal CT or MR in 2 years. Electronically Signed: Marcell Raymond (Brooks), at 17:07 EDT ,
== END | disposition home or self-care (01) ==
LOC: MRI 15:16
PROVIDERS: PCP Family Medicine; Referring Provider Internal Medicine Gastroenterology; Visit Provider Internal Medicine Gastroenterology
DX: K86.2 Cyst of pancreas (principal)
CPT/HCPCS: 74181

== ENCOUNTER → 2023-09-12 | Outpatient (CLI) | payer MEDICARE, BC, SELFPAY ==
[2023-09-14 12:09] LABS: Carbohydrate Ag 19-9 2261 9 U/mL (0-35)
== END | disposition home or self-care (01) ==
LOC: LAB 15:22
PROVIDERS: PCP Family Medicine; Referring Provider Internal Medicine Gastroenterology; Visit Provider Internal Medicine Gastroenterology
DX: K86.2 Cyst of pancreas (principal); K86.89 Other specified diseases of pancreas; R10.9 Unspecified abdominal pain
CPT/HCPCS: 36415; 86301

== ENCOUNTER → 2023-11-15 | Outpatient (CLI) | payer MEDICARE, BC, SELFPAY ==
[2023-11-15 16:45] LABS: PSA,Total- Diagnostic 0.26 ng/mL (0.0-4.0)
== END | disposition home or self-care (01) ==
PROVIDERS: PCP Family Medicine; Visit Provider Nurse Practitioner
DX: C61 Malignant neoplasm of prostate (principal)
CPT/HCPCS: 36415; 84153

== ENCOUNTER → 2024-12-19 | Outpatient (CLI) | payer MEDICARE, BC, SELFPAY ==
[2024-12-19 15:36] LABS: PSA,Total- Diagnostic 0.25 ng/mL (0.0-4.0)
== END | disposition home or self-care (01) ==
LOC: LAB 13:42
PROVIDERS: PCP Family Medicine; Referring Provider Urology; Visit Provider Urology
DX: C61 Malignant neoplasm of prostate (principal)
CPT/HCPCS: 36415; 84153